=== PATIENT | female | born 1940 | race Caucasian/White ===

== ENCOUNTER 2016-10-12 15:51 | Inpatient (IN) | payer MEDICARE ==
[2016-10-12] MEDS ORDERED: SODIUM CHLORIDE 0.9% 500 ML IV STA (16:05)
[2016-10-12] MEDS ORDERED: MORPHINE SULFATE 2 MG/ML SYRINGE IVP STA (16:05)
[2016-10-12] MEDS ORDERED: ONDANSETRON 4 MG/2 ML VIAL IVP PRN (16:05)
[2016-10-12] MEDS ORDERED: SODIUM CHLORIDE 0.9% 1,000 ML IV STA ×2 (16:05)
[2016-10-12 16:33] LABS: Basophils % (A) 0 %; CH 30.4; CHCM 32.2; Eosinophils % (A) 1 %; HCT 42.7 % (34.0-46.0); HDW 2.45; HGB 13.4 gm/dL (11.4-16.0); Luc % (Auto) 1; Lymphocytes % (A) 12 %; MCH 29.9 pg (25.0-35.0); MCHC 31.4 g/dL (31.0-37.0); Mean Platelet Volume 7.8; Monocytes # (A) 0.5 k/uL (0-1.0); Monocytes % (A) 6 %; Neutrophils # (A) 6.4 k/uL (1.3-7.7); Neutrophils % (A) 80 %; RBC 4.49 m/uL (3.80-5.40); RDW 14.6 % (11.5-15.5); WBC 8.1 k/uL (3.8-10.6); WBC (Perox) 8.04
--- NOTE | 2016-10-12 16:33 | ED ---
General Adult HPI - General Chief complaint: Fall Stated complaint: FALL, HIP Fx Time Seen by Provider: 10/12/16 15:55 Source: patient, EMS, RN notes reviewed, old records reviewed Mode of arrival: EMS Limitations: altered mental status - History of Present Illness Initial comments: This is a 76-year-old female here for evaluation. Patient's history of cirrhosis status post fall patient patient has history of dementia unable to evacuate history. History obtained from EMS, patient staff. Patient had follow -up landing on right hip with right hip fracture positive proven on x-ray. Patient is brought in with x-ray films. Patient has no other complaints - Related Data Allergies Allergy/AdvReac Type Severity Reaction Status Date / Time latex Allergy Rash/Hives Verified 10/12/16 16:10 Penicillins Allergy Rash/Hives Verified 10/12/16 16:10 shellfish derived [Shellfish] Allergy Rash/Hives Verified 10/12/16 16:10 Review of Systems ROS Statement: Those systems with pertinent positive or pertinent negative responses have been documented in the HPI. ROS Other: All systems not noted in ROS Statement are negative. Past Medical History Past Medical History: Atrial Fibrillation, Dementia, GERD/Reflux, Hyperlipidemia , Hypertension, Sleep Apnea/CPAP/BIPAP, Thyroid Disorder Additional Past Medical History / Comment(s): vascular dementia, transient cerebral ischemia, peripheral arterial occlusive disease, iron deficiency anemia , balance impairment History of Any Multi-Drug Resistant Organisms: None Reported Past Surgical History: Appendectomy, Heart Catheterization With Stent, Joint Replacement, Pacemaker Additional Past Surgical History / Comment(s): pacemaker placed in 2011, right knee replacement in 2005, Past Psychological History: Depression Smoking Status: Former smoker Past Alcohol Use History: Rare Past Drug Use History: None Reported General Exam Limitations: altered mental status General appearance: alert, in no apparent distress Head exam: Present: atraumatic, normocephalic, normal inspection Eye exam: Present: normal appearance, PERRL, EOMI. Absent: scleral icterus, conjunctival injection, periorbital swelling ENT exam: Present: normal exam, mucous membranes moist Neck exam: Present: normal inspection. Absent: tenderness, meningismus, lymphadenopathy Respiratory exam: Present: normal lung sounds bilaterally. Absent: respiratory distress, wheezes, rales, rhonchi, stridor Cardiovascular Exam: Present: regular rate, normal rhythm, normal heart sounds. Absent: systolic murmur, diastolic murmur, rubs, gallop, clicks GI/Abdominal exam: Present: soft, normal bowel sounds. Absent: distended, tenderness, guarding, rebound, rigid Extremities exam: Present: normal inspection, full ROM, normal capillary refill , other (Right hip shortened rotated). Absent: tenderness, pedal edema, joint swelling, calf tenderness Back exam: Present: normal inspection Neurological exam: Present: alert, oriented X3, CN II-XII intact Psychiatric exam: Present: normal affect, normal mood Skin exam: Present: warm, dry, intact, normal color. Absent: rash Course Vital Signs 10/12/16 15:55 Temperature 97.7 F Pulse Rate 60 Respiratory 18 Rate Blood Pressure 158/92 O2 Sat by Pulse 98 Oximetry - Reevaluation(s) Reevaluation #1: 10/12/16 16:32 Patient's pain is controlled EKG Findings - EKG Comments: EKG Findings:: EKG shows sinus bradycardia rate 57, NM 18, QRS 70, QTC 445 Medical Decision Making - Medical Decision Making 36 female here for evaluation. Patient with minor fracture, positive right hip fracture. Patient be admitted for orthopedic treatment - Radiology Data Radiology results: report reviewed (X-rays reviewed showing positive right hip fracture), image reviewed Disposition Clinical Impression: Fall, Right hip pain Disposition: HOME SELF-CARE Condition: Good Referrals: Jamison Andrade MD [Primary Care Provider] - 1-2 days
[2016-10-12 16:37] LABS: ALT 35 U/L (9-52); AST 37 U/L (14-36); Alkaline Phosphatase 98 U/L (38-126); Anion Gap 10 mmol/L; Blood Urea Nitrogen 21 mg/dL (7-17); Carbon Dioxide 25 mmol/L (22-30); Chloride 105 mmol/L (98-107); Glucose 114 mg/dL (74-99); Magnesium 2.3 mg/dL (1.6-2.3); Non-African American GFR(MDRD) 56 (>60 ml/min/1.73 sqM); Phosphorous 3.5 mg/dL (2.5-4.5); Potassium 4.5 mmol/L (3.5-5.1); Sodium 140 mmol/L (137-145); Total Bilirubin 0.6 mg/dL (0.2-1.3); Total Protein 6.8 g/dL (6.3-8.2)
[2016-10-12 16:40] LABS: INR 1.1 (<1.1); Prothrombin Time 11.1 sec (9.0-12.0)
[2016-10-12 16:47] LABS: Creatine Kinase 75 U/L (30-135)
[2016-10-12 16:57] LABS: Partial Thromboplastin Time 34.1 sec (22.0-30.0)
[2016-10-12 17:00] LABS: Troponin I <0.012 ng/mL (0.000-0.034)
[2016-10-12 17:01] LABS: Creatine Kinase MB 2.6 ng/mL (0.0-2.4)
--- NOTE | 2016-10-12 17:31 | XR ---
EXAMINATION TYPE: XR chest 2V DATE OF EXAM: 10/12/2016 5:11 PM COMPARISON: 04/11/2012 HISTORY: Weakness TECHNIQUE: Frontal and lateral views of the chest are obtained. FINDINGS: There is no heart failure nor confluent pneumonic infiltrate. There is hiatal hernia. Ther e is a left axillary pacemaker with the lead tips in the right ventricle. There is no pleural effusio n. Bony thorax appears intact. IMPRESSION: Hiatal hernia. No active cardiopulmonary disease. Hiatal hernia appears new compared to last exam.
[2016-10-12 17:42] LABS: Appearance,Urine Clear (Clear); Bilirubin,Urine Negative (Negative); Glucose,Urine (UA) Trace (Negative); Ketones,Urine Negative (Negative); Leukocyte Esterase,Urine Negative (Negative); Nitrite,Urine Negative (Negative); Protein,Urine Negative (Negative); UA Billing (MACRO vs. MICRO) CHEM; Urobilinogen,Urine <2.0 mg/dL (<2.0)
[2016-10-12] MEDS: MORPHINE SULFATE 4 MG/ML SYRINGE IV SCH ×2 (20:09→23:12)
[2016-10-12 20:44] VITALS: BMI 27.8
[2016-10-12] MEDS: traZODone HCL 100 MG TAB PO SCH (23:59)
[2016-10-13] MEDS: MORPHINE SULFATE 4 MG/ML SYRINGE IV SCH ×6 (04:11→23:26)
[2016-10-13] MEDS: LEVOTHYROXINE 75 MCG TAB PO SCH (06:13)
[2016-10-13] MEDS ORDERED: PANTOPRAZOLE 40 MG/10 ML VIAL IVP SCH (09:00)
[2016-10-13] MEDS ORDERED: AMIODARONE 100 MG TAB PO SCH (09:00)
[2016-10-13] MEDS: VERAPAMIL SR 120 MG TABLET.ER PO SCH (09:58)
[2016-10-13] MEDS: ESCITALOPRAM 10 MG TAB PO SCH (09:58)
[2016-10-13] MEDS: PANTOPRAZOLE 40 MG TABLET PO SCH (09:59)
[2016-10-13] MEDS: ENOXAPARIN 40 MG/0.4 ML SYRINGE SQ SCH (11:54)
[2016-10-13] MEDS: ATORVASTATIN 20 MG TAB PO SCH (11:54)
[2016-10-13] MEDS: AMIODARONE 200 MG TAB PO SCH (11:55)
--- NOTE | 2016-10-13 12:32 | P.CONS ---
History of Present Illness - Reason for Consult Consult date: 10/13/16 medical management Requesting physician: Pérez Lares - Chief Complaint right hip fracture, A. fib, CAD, dementia, hypertension, obstructive sleep - History of Present Illness 76-year-old female who moved from [facility] recently used to live in town years ago. Patient apparently has been having significant symptom of advanced dementia had move to [facility] long-term over 4 weeks ago and has been doing well until 10/12/2016 when found on the floor after simple fall with no other major injury but had significant pain and discomfort in the hip area in the right side. Patient was transferred to the emergency department at [facility] x-ray of the hip showed intratrochanteric fracture of the right side. Patient had no other injury her lab and rest of workup came back negative. Patient was admitted to the hospital by Dr. Lares service for potential surgery either hemiarthroplasty hour ORIF of the right hip. Unfortunately patient is on anticoagulation with paradoxical for A. fib which will be held for at least the next 72 hours before taking a higher chance for bleed after surgery. Also patient will be tone medically and we'll consult cardiology for clearance before surgery. Review of Systems Constitutional: Reports anorexia, Reports fatigue, Reports lethargy, Reports weakness, Reports weight loss, Denies as per HPI, Denies chills, Denies chronic headaches, Denies chronic pain, Denies daytime sleepiness, Denies fever, Denies malaise, Denies night sweats, Denies poor appetite, Denies sweats, Denies weight gain Eyes: bilateral as per HPI Ears: bilateral: decreased hearing Ears, nose, mouth and throat: Reports ant. neck pain, Reports nasal discharge, Reports sinus pain, Reports sinus pressure, Denies as per HPI, Denies bleeding gums, Denies dental pain, Denies dysphagia, Denies epistaxis, Denies headache, Denies hoarseness, Denies mouth pain, Denies nasal congestion, Denies neck fullness/pressure, Denies neck lump, Denies nose pain, Denies odynophagia, Denies post-nasal drip, Denies swelling in mouth, Denies swelling in throat, Denies sore throat, Denies vertigo, Denies voice changes Cardiovascular: Reports chest pain, Reports claudication, Reports dyspnea on exertion, Reports edema, Reports lightheadedness, Reports orthopnea, Reports palpitations, Reports paroxysmal nocturnal dyspnea, Denies as per HPI, Denies decreased exercise tolerance, Denies high blood pressure, Denies irregular heart beat, Denies leg edema, Denies phlebitis, Denies rapid heart beat, Denies shortness of breath, Denies syncope Respiratory: Reports congestion, Reports dyspnea, Reports sleep apnea, Denies as per HPI, Denies cough, Denies cough with sputum, Denies excessive sputum, Denies hemoptysis, Denies home oxygen, Denies pain, Denies pain on inspiration, Denies pleurisy, Denies respiratory infections, Denies snoring, Denies wheezing Gastrointestinal: Reports abdominal pain, Reports dyspepsia, Reports indigestion , Reports nausea, Denies as per HPI, Denies belching, Denies bloating, Denies BRBPR, Denies change in bowel habits, Denies coffee ground emesis, Denies constipation, Denies diarrhea, Denies early satiety, Denies excessive gas, Denies heartburn, Denies hematemesis, Denies hematochezia, Denies jaundice, Denies lactose intolerance, Denies loss of appetite, Denies melena, Denies vomiting Genitourinary: Reports nocturia, Reports stress incontinence, Reports urge incontinence, Reports urinary frequency, Denies as per HPI, Denies abnormal vaginal bleeding, Denies decreased libido, Denies difficulty conceiving, Denies difficulty voiding, Denies dysmenorrhea, Denies dyspareunia, Denies dysuria, Denies flank pain, Denies genital sores, Denies hematuria, Denies hot flashes, Denies incomplete emptying, Denies kidney stones, Denies menorrhagia, Denies mixed incontinence, Denies pelvic pain, Denies post void dribbling, Denies , Denies prolapse symptoms, Denies urgency, Denies vaginal discharge, Denies vaginal dryness, Denies vaginal itching, Denies vaginal odor Menstruation: Denies as per HPI, Denies amenorrhea, Denies amenorrhea on BC, Denies currently menstrual, Denies cycle < 21 days, Denies cycle > 35 days, Denies cycle variable, Denies menses 1-7 days, Denies menses 8 or > days, Denies menses variable, Denies period heavy, Denies period light, Denies period normal, Denies period spotting, Denies post hysterectomy, Denies postmenopausal , Denies premenarcheal Musculoskeletal: Reports loss of height, Reports low back pain, Reports neck pain, Reports neck stiffness, Denies as per HPI, Denies arm numbness/tingling, Denies atrophy, Denies fractures, Denies frequent falls, Denies gait dysfunction , Denies hot joints, Denies leg numbness/tingling, Denies limitation of motion, Denies morning stiffness, Denies muscle cramps, Denies muscle weakness, Denies myalgias, Denies prior amputations, Denies redness of joints, Denies shooting arm pain, Denies shooting leg pain Musculoskeletal: right: hip pain, hip stiffness, hip swelling Integumentary: Reports dryness, Reports rash, Reports sores, Denies as per HPI, Denies acne, Denies boils, Denies brittle nails, Denies change in hair/nails, Denies color changes, Denies darkening of skin, Denies depigmentation, Denies foot/leg ulcers, Denies growths, Denies hirsutism, Denies lesions, Denies onychomycosis, Denies pruritus, Denies striae, Denies unusual bruising, Denies wounds Neurological: Reports aphasia, Reports paresthesias, Reports tingling, Reports weakness, Denies as per HPI, Denies ataxia, Denies balance difficulties, Denies burning pain, Denies change in mentation, Denies change in smell/taste, Denies change in speech, Denies confusion, Denies convulsions, Denies double vision, Denies gait dysfunction, Denies head injury, Denies headaches, Denies hearing difficulties, Denies lack of coordination, Denies loss of vision, Denies memory loss, Denies migraines, Denies motor disturbance, Denies numbness, Denies paralysis, Denies seizures, Denies sensory deficit, Denies spasticity, Denies syncope, Denies tic, Denies transient paralysis, Denies tremors, Denies vertigo , Denies visual changes Psychiatric: Reports confusion, Reports depression, Reports memory loss, Reports sleep disturbances, Denies as per HPI, Denies anhedonia, Denies anxiety , Denies anxiety attacks, Denies change in appetite, Denies change in libido, Denies change in sleep habits, Denies difficulty concentrating, Denies disorientation, Denies hallucinations, Denies hopelessness, Denies hypersomnia, Denies insomnia, Denies irritability, Denies mood swings, Denies paranoia, Denies sadness/tearfulness, Denies suicidal ideation Endocrine: Reports cold intolerance, Denies as per HPI, Denies deepening of the voice, Denies excessive sweating, Denies excessive thirst, Denies fatigue, Denies flushing, Denies heat intolerance, Denies high blood sugars, Denies increase in ring/shoe/hat size, Denies low blood sugars, Denies nocturia, Denies palpitations, Denies polydipsia, Denies polyphagia, Denies polyuria, Denies proptosis, Denies recent glucocorticoid use, Denies thyroid mass, Denies weight change Allergic/Immunologic: Reports allergic rhinitis, Denies as per HPI, Denies anaphylaxis, Denies angioedema, Denies gluten intolerance, Denies persistent infections, Denies seasonal allergies, Denies urticaria, Denies wheezing Past Medical History Past Medical History: Atrial Fibrillation, Dementia, GERD/Reflux, Hyperlipidemia , Hypertension, Sleep Apnea/CPAP/BIPAP, Thyroid Disorder Additional Past Medical History / Comment(s): vascular dementia, transient cerebral ischemia, peripheral arterial occlusive disease, iron deficiency anemia , balance impairment,urinary incontinence History of Any Multi-Drug Resistant Organisms: None Reported Past Surgical History: Appendectomy, Heart Catheterization With Stent, Joint Replacement, Pacemaker Additional Past Surgical History / Comment(s): pacemaker placed in 2011, right knee replacement in 2005, Past Anesthesia/Blood Transfusion Reactions: No Reported Reaction Date of Last Stent Placement:: none Type of Cardiac Device: Permanent Pacemaker Device Placement Date:: 2011 Past Psychological History: Depression Smoking Status: Former smoker Past Alcohol Use History: Rare Past Drug Use History: None Reported - Past Family History Father Family Medical History: Diabetes Mellitus, Deep Vein Thrombosis (DVT), Myocardial Infarction (MD) Mother Family Medical History: Hypertension Medications and Allergies Home Medications Medication Instructions Recorded Confirmed Type Acetaminophen Tab [Tylenol Tab] 1,000 mg PO Q4H PRN 10/12/16 10/12/16 History Amiodarone HCl [Pacerone] 100 mg PO DAILY 10/12/16 10/12/16 History Ascorbic Acid [Vitamin C] 500 mg PO DAILY@1700 10/12/16 10/12/16 History Aspirin 81 mg PO DAILY@17010/12/16 10/12/16 History Atorvastatin [Lipitor] 20 mg PO DAILY 10/12/16 10/12/16 History Bisacodyl [Dulcolax] 10 mg RECTAL DAILY PRN 10/12/16 10/12/16 History Calcium Carbonate/Vitamin D3 1 tab PO DAILY@17010/12/16 10/12/16 History [Os-Aditya 500+D3 Caplet] Dabigatran [Pradaxa] 150 mg PO BID@0800,169910/12/16 10/12/16 History Escitalopram Oxalate [Lexapro] 10 mg PO DAILY 10/12/16 10/12/16 History Ferrous Sulfate [Feosol] 325 mg PO DAILY@169910/12/16 10/12/16 History Furosemide [Lasix] 40 mg PO MOWEFR@169910/12/16 10/12/16 History Levothyroxine Sodium [Synthroid] 75 mcg PO DAILY 10/12/16 10/12/16 History Magnesium Hydroxide [Milk of 2,400 mg PO DAILY PRN 10/12/16 10/12/16 History Magnesia] Multivitamins, Thera [Multivitamin 1 tab PO DAILY@169910/12/16 10/12/16 History (formulary)] Na Phos,M-B/Na Phos,Di-Ba [Fleet 133 ml RECTAL DAILY PRN 10/12/16 10/12/16 History Adult] OLANZapine [ZyPREXA] 2.5 mg PO HS 10/12/16 10/12/16 History Omeprazole 20 mg PO DAILY 10/12/16 10/12/16 History Potassium Chloride ER [K-Dur 20] 20 meq PO MOWEFR@169910/12/16 10/12/16 History Verapamil HCl [Verapamil ER] 120 mg PO DAILY 10/12/16 10/12/16 History traMADol HCL [Ultram] 50 mg PO Q6HR PRN 10/12/16 10/12/16 History traZODone HCL 100 mg PO HS 10/12/16 10/12/16 History Allergies Allergy/AdvReac Type Severity Reaction Status Date / Time latex Allergy Rash/Hives Verified 10/12/16 16:33 Penicillins Allergy Rash/Hives Verified 10/12/16 16:33 shellfish derived [Shellfish] Allergy Rash/Hives Verified 10/12/16 16:33 Physical Exam Vitals: Vital Signs Temp Pulse Pulse Pulse Resp BP BP 10/13/16 09:56 125/77 10/13/16 07:00 97.0 F L 72 16 95/55 10/13/16 02:30 98.8 F 74 16 115/63 10/12/16 20:07 98.2 F 72 16 135/60 10/12/16 20:00 16 10/12/16 18:34 97.3 F L 78 18 150/66 10/12/16 17:43 65 16 150/66 Pulse Ox 10/13/16 09:56 94 L 10/13/16 07:00 88 L 10/13/16 02:30 92 L 10/12/16 20:07 95 10/12/16 20:00 10/12/16 18:34 97 10/12/16 17:43 95 Intake and Output 10/12/16 10/13/16 10/13/16 22:59 06:59 14:59 Intake Total 400 800 Output Total 525 Balance 400 275 Intake: IV 400 800 Sodium Chloride 0.9% 1, 400 800 000 ml @ 100 mls/hr IV . Q10H STA Rx#:[id number] Output: Urine 525 Uretheral (Beckman) 525 Other: Voiding Method Indwelling Catheter Weight 83.189 kg - Constitutional General appearance: no average body habitus, cooperative, no disheveled, no mild distress, no morbidly obese, no acute distress, no obese, no severe distress, no thin - EENT Eyes: no abnormal pupil, no anicteric sclerae, no disc margins sharp, no edentulous, no EOMI, no PERRLA, no fundus normal, no photophobia, no dentition normal, no poor dentition, no ptosis, no scleral icterus, normal appearance ENT: no hard of hearing, no hearing grossly normal, no NA/AT, normal oropharynx , no other, no pharyngeal erythema, no thrush, no tonsillar exudates, no tonsillar swelling Ears: bilateral: normal - Neck Neck: no lymphadenopathy, normal ROM, no other, no rigidity, no stridor, no thyromegaly Carotids: bilateral: upstroke normal Thyroid: bilateral: normal size - Respiratory Respiratory: bilateral: CTA, diminished - Cardiovascular Rhythm: irregularly irregular Heart sounds: normal: S1, S2 Abnormal Heart Sounds: systolic murmur, S3 Gallop - Gastrointestinal General gastrointestinal: no absent bowel sounds, decreased bowel sounds, no distended, no hepatomegaly, no hyperactive bowel sounds, normal bowel sounds, no organomegaly, no rigid, no scaphoid, soft, no splenomegaly, no tenderness, no umbilical hernia, no ventral hernia - Integumentary right hip area had mild tenderness and discomfort in the right groin also had that the leg mildly externally rotated. Integumentary: calor, no cellulitis, no cyanotic, no decreased turgor, no flushed, no jaundiced, normal, normal turgor, pale, no rash, no ulcer - Neurologic Neurologic: CNII-XII intact - Musculoskeletal Musculoskeletal: no gait normal, generalized weakness, no strength equal bilaterally, no right sided weakness, no left sided weakness - Psychiatric Psychiatric: no A&O x's 3, appropriate affect, no intact judgment & insight Results CBC & Chem 7: 10/12/16 14:10 10/12/16 14:10 Labs: Abnormal Lab Results - Last 24 Hours (Table) 10/12/16 Range/Units 17:30 Urine Glucose (UA) Trace H (Negative) Microbiology - Last 24 Hours (Table) 10/12/16 17:30 Urine Culture - Preliminary Urine,Catheterized Assessment and Plan Plan: 1 right hip fracture: Patient will be going for surgery for either hemiarthroplasty hour ORIF depend of with the orthopedic find the best set up for it and for the circumstances. Patient will be clear for surgery. Make sure patient is back on her A. fib medication regime along with her congestive heart failure medication except anticoagulation. Also consult cardiology for cardiology clearance. from medical standpoint I don't see any absolute contraindication for surgery patient will be watch hemodynamically during after surgery. 2 CAD: Post PCI and stent placement has been doing well her senior bioinformatics scientist apparently wasn't [place] has not seen a senior bioinformatics scientist down so far. 3 A. fib with RVR: Pulse rates under control currently patient is doing well on verapamil andamiodarone 100 mg daily and 4 anticoagulation has been on pradaxa, pradaxa was held for now until the surgery. 4 post pacemaker: Has been watch by cardiology regular basis. 5 advance dementia: Patient has been on Lexapro and Zyprexa along with trazodone at nighttime. 6 hyperlipidemia: Has been on Lipitor 20 mg a day. 7 congestive heart failure: Mostly systolic dysfunction chronic has been on Lasix fluid restriction and verapamil. 8 hypothyroidism: Continue levothyroxine 75 g daily. 9 chronic anemia: Iron deficient patient has been doing well on iron supplement. 10 GI prophylaxis: Patient will be on omeprazole 20 mg daily. 11 DVT prophylaxis: Patient was on pradaxa as soon as she is done with surgery back on medication otherwise will be on heparin subcutaneous. CODE STATUS: DO NOT RESUSCITATE. Dr. Lares thank you very much for the consult if I can be any further help to please let me know
--- NOTE | 2016-10-13 15:11 | XR ---
EXAMINATION TYPE: XR Hip Complete RT DATE OF EXAM: 10/13/2016 9:00 AM COMPARISON: NONE HISTORY: Hip fracture TECHNIQUE: 2 view right hip FINDINGS: There is a fracture through the neck of the right femur. Femoral head articulates with the acetabulum. IMPRESSION: 1. Right femoral neck fracture.
--- NOTE | 2016-10-13 16:25 | P.HPOR ---
History of Present Illness H&P Date: 10/13/16 Chief Complaint: Right femoral neck fracture This is 76-year-old female who presented to [facility] yesterday from her inpatient rehab facility. Patient is [facility] at [facility] due to dementia. Patient was found on her floor in her room around 11 AM on 10/12/2016. She was unable to weight-bear complained of pain in the right hip. She was brought to [facility] on, and imaging test demonstrated a right femoral neck fracture. I was not contacted by the emergency room staff, I was contacted this morning by the surgical floor nurses with regards to this patient. She is admitted under our orthopedic care, with internal medicine consult. 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 She's been am [facility] facility for the last 3 weeks. She is a previous hip surgery, and also a left total knee arthroplasty that were done on the left side of the stay. Patient is very poor historian, she cannot provide any history with regards to her medical problems or the recent fall. Patient sister is present with her at bedside today who provided knee with all the information. The patient sister mentions that her activity level Status has declined since arriving contact [place], and she states it has been on the decline over the last year so. She does utilize a walker when she ambulates. Patient does admit to discomfort in the right hip with movement. She denies any acute pain involving the right knee or right foot or ankle. She denies any left lower extremity pain, she denies any upper extremity pain, she denies any discomfort of the cervical and lumbar spine. Patient denies any headaches, lightheadedness, chest pain, shortness of breath, fever or chills. Review of Systems Constitutional: Reports as per HPI Past Medical History Past Medical History: Atrial Fibrillation, Dementia, GERD/Reflux, Hyperlipidemia , Hypertension, Sleep Apnea/CPAP/BIPAP, Thyroid Disorder Additional Past Medical History / Comment(s): vascular dementia, transient cerebral ischemia, peripheral arterial occlusive disease, iron deficiency anemia , balance impairment,urinary incontinence History of Any Multi-Drug Resistant Organisms: None Reported Past Surgical History: Appendectomy, Heart Catheterization With Stent, Joint Replacement, Pacemaker Additional Past Surgical History / Comment(s): pacemaker placed in 2011, right knee replacement in 2005, Past Anesthesia/Blood Transfusion Reactions: No Reported Reaction Date of Last Stent Placement:: none Type of Cardiac Device: Permanent Pacemaker Device Placement Date:: 2011 Past Psychological History: Depression Smoking Status: Former smoker Past Alcohol Use History: Rare Past Drug Use History: None Reported - Past Family History Father Family Medical History: Diabetes Mellitus, Deep Vein Thrombosis (DVT), Myocardial Infarction (ID) Mother Family Medical History: Hypertension Medications and Allergies Home Medications Medication Instructions Recorded Confirmed Type Acetaminophen Tab [Tylenol Tab] 1,000 mg PO Q4H PRN 10/12/16 10/12/16 History Amiodarone HCl [Pacerone] 100 mg PO DAILY 10/12/16 10/12/16 History Ascorbic Acid [Vitamin C] 500 mg PO DAILY@169910/12/16 10/12/16 History Aspirin 81 mg PO DAILY@169910/12/16 10/12/16 History Atorvastatin [Lipitor] 20 mg PO DAILY 10/12/16 10/12/16 History Bisacodyl [Dulcolax] 10 mg RECTAL DAILY PRN 10/12/16 10/12/16 History Calcium Carbonate/Vitamin D3 1 tab PO DAILY@169910/12/16 10/12/16 History [Os-Aditya 500+D3 Caplet] Dabigatran [Pradaxa] 150 mg PO BID@0800,169910/12/16 10/12/16 History Escitalopram Oxalate [Lexapro] 10 mg PO DAILY 10/12/16 10/12/16 History Ferrous Sulfate [Feosol] 325 mg PO DAILY@169910/12/16 10/12/16 History Furosemide [Lasix] 40 mg PO MOWEFR@169910/12/16 10/12/16 History Levothyroxine Sodium [Synthroid] 75 mcg PO DAILY 10/12/16 10/12/16 History Magnesium Hydroxide [Milk of 2,400 mg PO DAILY PRN 10/12/16 10/12/16 History Magnesia] Multivitamins, Thera [Multivitamin 1 tab PO DAILY@169910/12/16 10/12/16 History (formulary)] Na Phos,M-B/Na Phos,Di-Ba [Fleet 133 ml RECTAL DAILY PRN 10/12/16 10/12/16 History Adult] OLANZapine [ZyPREXA] 2.5 mg PO HS 10/12/16 10/12/16 History Omeprazole 20 mg PO DAILY 10/12/16 10/12/16 History Potassium Chloride ER [K-Dur 20] 20 meq PO MOWEFR@1700 10/12/16 10/12/16 History Verapamil HCl [Verapamil ER] 120 mg PO DAILY 10/12/16 10/12/16 History traMADol HCL [Ultram] 50 mg PO Q6HR PRN 10/12/16 10/12/16 History traZODone HCL 100 mg PO HS 10/12/16 10/12/16 History Allergies Allergy/AdvReac Type Severity Reaction Status Date / Time latex Allergy Rash/Hives Verified 10/12/16 16:33 Penicillins Allergy Rash/Hives Verified 10/12/16 16:33 shellfish derived [Shellfish] Allergy Rash/Hives Verified 10/12/16 16:33 Physical Examination Right lower extremity: Obvious shortening and external rotation of the hip was noted. There is no obvious open lesions or sores present Patient is unable to straight leg raise, logroll maneuver reproduces pain Her calf is soft, no tenderness with palpation. Her sensation to light touch throughout the lower extremities intact, her dorsal pedis pulses 2+. Plantar flexion, dorsiflexion, EHL, FHL are intact. Results - Labs Labs: Abnormal Lab Results - Last 24 Hours (Table) 10/12/16 Range/Units 17:30 Urine Glucose (UA) Trace H (Negative) Microbiology - Last 24 Hours (Table) 10/12/16 17:30 Urine Culture - Preliminary Urine,Catheterized Result Diagrams: 10/12/16 14:10 10/12/16 14:10 - Diagnostic results Hip x-ray: report reviewed, image reviewed Assessment and Plan Plan: Imaging: X-rays the right hip and pelvis were taken. Images demonstrated a right femoral neck fracture with displacement. No other acute fractures or dislocations present Assessment: 1. Right femoral neck fracture 2. Status post fall 3. Other medical comorbidities Plan: 1. I was able to discuss this case, including the physical exam findings and imaging studies with Dr. Lares. I would like to proceed with surgical fixation, we would like to do direct anterior hip replacement for this problem. Patient is anticoagulated with Pradaxa, so surgery will be delayed until 10/15. 2. I did discuss the risk and benefits of the procedure with the patient's sister, I also did discuss the case and surgery with the patient's daughter who is her guardian. I will be contacting her throughout the hospital stay for updates. 3. Obtain consents 4. Regular diet at this time, she'll be made nothing by mouth before surgery 5. Heparin subcu for DVT prophylaxis, also be held before surgery. Hold Pradaxa 6. Medical clearances 7. Cardiac clearances 8. Further recommendations to follow after surgery Time with Patient: Less than 30
[2016-10-13] MEDS: POTASSIUM CHLORIDE ER 20 MEQ TAB.ER PO SCH (20:19)
[2016-10-13] MEDS: FUROSEMIDE 40 MG TAB PO SCH (20:19)
[2016-10-13] MEDS: FERROUS SULFATE 325 MG TAB PO SCH (20:19)
[2016-10-13] MEDS: traZODone HCL 100 MG TAB PO SCH (20:20)
[2016-10-13] MEDS: OLANZapine 2.5 MG TAB PO SCH (20:20)
[2016-10-14] MEDS: MORPHINE SULFATE 4 MG/ML SYRINGE IV SCH ×5 (03:04→22:23)
[2016-10-14] MEDS: LEVOTHYROXINE 75 MCG TAB PO SCH (05:23)
[2016-10-14 08:23] LABS: ALT 31 U/L (9-52); AST 22 U/L (14-36); Alkaline Phosphatase 72 U/L (38-126); Anion Gap 4 mmol/L; Blood Urea Nitrogen 12 mg/dL (7-17); Carbon Dioxide 28 mmol/L (22-30); Chloride 105 mmol/L (98-107); Glucose 89 mg/dL (74-99); Non-African American GFR(MDRD) >60 (>60 ml/min/1.73 sqM); Potassium 4.2 mmol/L (3.5-5.1); Sodium 137 mmol/L (137-145); Total Bilirubin 0.6 mg/dL (0.2-1.3); Total Protein 5.3 g/dL (6.3-8.2)
[2016-10-14] MEDS: VERAPAMIL SR 120 MG TABLET.ER PO SCH (08:53)
[2016-10-14] MEDS: AMIODARONE 200 MG TAB PO SCH (08:53)
[2016-10-14] MEDS: PANTOPRAZOLE 40 MG TABLET PO SCH (08:53)
[2016-10-14] MEDS: ATORVASTATIN 20 MG TAB PO SCH (08:54)
[2016-10-14] MEDS: ESCITALOPRAM 10 MG TAB PO SCH (08:54)
[2016-10-14] MEDS: ENOXAPARIN 40 MG/0.4 ML SYRINGE SQ SCH (08:54)
--- NOTE | 2016-10-14 11:35 | P.PN ---
Subjective Principal diagnosis: Right femoral neck fracture Patient is seen today resting in hospital in bed, she is sleeping upon arrival. Her mental status is unchanged since yesterday. She states the pain in the right hip is stable when she does not move Objective - Vital Signs Vital signs: Vital Signs Temp 98.5 F 10/14/16 07:32 Pulse 54 L 10/14/16 07:32 Resp 15 10/14/16 07:32 BP 100/64 10/14/16 07:32 Pulse Ox 93 L 10/14/16 07:32 Intake & Output 10/13/16 10/14/16 10/14/16 18:59 06:59 18:59 Intake Total 500 Output Total 1300 2500 Balance -1300 -1999 Intake: IV 350 Sodium Chloride 0.9% 1, 350 000 ml @ 100 mls/hr IV . Q10H STA Rx#:[id number] Oral 150 Output: Urine 1300 2500 Other: Voiding Method Indwelling Catheter Indwelling Catheter Indwelling Catheter - Exam Right lower extremity: Obvious shortening and external rotation of the hip is noted. There is no obvious open lesions or sores, there is ecchymosis or soft tissue swelling. Calf is soft, no tenderness with palpation. Plantar flexion, dorsiflexion, EHL , FHL are intact. Sensation to light touch throughout the extremities intact, dorsal pedis pulses 2+ - Labs CBC & Chem 7: 10/12/16 14:10 10/14/16 06:58 Labs: Abnormal Lab Results - Last 24 Hours (Table) 10/14/16 Range/Units 06:58 Calcium 8.0 L (8.4-10.2) mg/dL Total Protein 5.3 L (6.3-8.2) g/dL Albumin 2.7 L (3.5-5.0) g/dL Microbiology - Last 24 Hours (Table) 10/12/16 17:30 Urine Culture - Final Urine,Catheterized Assessment and Plan Plan: Assessment: 1. Right femoral neck fracture Plan: 1. Plan is for surgery tomorrow morning, she'll be made nothing by mouth after midnight 2. Continue nonweightbearing 3. Pain control 4. GI and DVT prophylaxis, continue heparin at this time, we'll hold after midnight 5. Further recommendations after surgery Time with Patient: Less than 30
--- NOTE | 2016-10-14 13:54 | P.PN ---
Subjective 76-year-old female who moved from [facility] recently used to live in town years ago. Patient apparently has been having significant symptom of advanced dementia had move to [facility] long-term over 4 weeks ago and has been doing well until 10/12/2016 when found on the floor after simple fall with no other major injury but had significant pain and discomfort in the hip area in the right side. Patient was transferred to the emergency department at [facility] x-ray of the hip showed intratrochanteric fracture of the right side. Patient had no other injury her lab and rest of workup came back negative. Patient was admitted to the hospital by Dr. Lares service for potential surgery either hemiarthroplasty hour ORIF of the right hip. Unfortunately patient is on anticoagulation with paradoxical for A. fib which will be held for at least the next 72 hours before taking a higher chance for bleed after surgery. Also patient will be tone medically and we'll consult cardiology for clearance before surgery. 10/14: Patient is laying down in bed in no apparent distress, she is scheduled to go for surgical intervention in the next 24 hours, she denies any chest pain , shortness breath, she will was seen by cardiology, she denies any abdominal pain, her pain is feeling much controlled. Objective - Vital Signs Vital signs: Vital Signs Temp 98.5 F 10/14/16 07:32 Pulse 54 L 10/14/16 07:32 Resp 15 10/14/16 07:32 BP 100/64 10/14/16 07:32 Pulse Ox 93 L 10/14/16 07:32 Intake & Output 10/13/16 10/14/16 10/14/16 18:59 06:59 18:59 Intake Total 500 Output Total 1300 2500 Balance -1299 -1999 Intake: IV 350 Sodium Chloride 0.9% 1, 350 000 ml @ 100 mls/hr IV . Q10H STA Rx#:[id number] Oral 150 Output: Urine 1300 2500 Other: Voiding Method Indwelling Catheter Indwelling Catheter - Exam - Constitutional General appearance: no average body habitus, cooperative, no disheveled, no mild distress, no morbidly obese, no acute distress, no obese, no severe distress, no thin - EENT Eyes: no abnormal pupil, no anicteric sclerae, no disc margins sharp, no edentulous, no EOMI, no PERRLA, no fundus normal, no photophobia, no dentition normal, no poor dentition, no ptosis, no scleral icterus, normal appearance ENT: no hard of hearing, no hearing grossly normal, no NA/AT, normal oropharynx , no other, no pharyngeal erythema, no thrush, no tonsillar exudates, no tonsillar swelling Ears: bilateral: normal - Neck Neck: no lymphadenopathy, normal ROM, no other, no rigidity, no stridor, no thyromegaly Carotids: bilateral: upstroke normal Thyroid: bilateral: normal size - Respiratory Respiratory: bilateral: CTA, diminished - Cardiovascular Rhythm: irregularly irregular Heart sounds: normal: S1, S2 Abnormal Heart Sounds: systolic murmur, S3 Gallop - Gastrointestinal General gastrointestinal: no absent bowel sounds, decreased bowel sounds, no distended, no hepatomegaly, no hyperactive bowel sounds, normal bowel sounds, no organomegaly, no rigid, no scaphoid, soft, no splenomegaly, no tenderness, no umbilical hernia, no ventral hernia - Integumentary right hip area had mild tenderness and discomfort in the right groin also had that the leg mildly externally rotated. Integumentary: calor, no cellulitis, no cyanotic, no decreased turgor, no flushed, no jaundiced, normal, normal turgor, pale, no rash, no ulcer - Neurologic Neurologic: CNII-XII intact - Musculoskeletal Musculoskeletal: no gait normal, generalized weakness, no strength equal bilaterally, no right sided weakness, no left sided weakness - Psychiatric Psychiatric: no A&O x's 3, appropriate affect, no intact judgment & insight - Labs CBC & Chem 7: 10/12/16 14:10 10/14/16 06:58 Labs: Abnormal Lab Results - Last 24 Hours (Table) 10/14/16 Range/Units 06:58 Calcium 8.0 L (8.4-10.2) mg/dL Total Protein 5.3 L (6.3-8.2) g/dL Albumin 2.7 L (3.5-5.0) g/dL Microbiology - Last 24 Hours (Table) 10/12/16 17:30 Urine Culture - Final Urine,Catheterized Assessment and Plan Plan: Assessment and Plan Plan: 1 right hip fracture: Patient will be going for surgery for anterior direct hip replacement Patient will be clear for surgery. Make sure patient is back on her A. fib medication regime along with her congestive heart failure medication except anticoagulation. Also consult cardiology for cardiology clearance. from medical standpoint I don't see any absolute contraindication for surgery patient will be watch hemodynamically during after surgery. 2 CAD: Post PCI and stent placement has been doing well her engineering illustrator apparently wasn't [place] has not seen a engineering illustrator down so far. 3 A. fib with RVR: Pulse rates under control currently patient is doing well on verapamil andamiodarone 100 mg daily and 4 anticoagulation has been on pradaxa, pradaxa was held for now until the surgery. 4 post pacemaker: Has been watch by cardiology regular basis. 5 advance dementia: Patient has been on Lexapro and Zyprexa along with trazodone at nighttime. 6 hyperlipidemia: Has been on Lipitor 20 mg a day. 7 congestive heart failure: Mostly systolic dysfunction chronic has been on Lasix fluid restriction and verapamil. 8 hypothyroidism: Continue levothyroxine 75 g daily. 9 chronic anemia: Iron deficient patient has been doing well on iron supplement. 10 GI prophylaxis: Patient will be on omeprazole 20 mg daily. 11 DVT prophylaxis: Patient was on pradaxa as soon as she is done with surgery back on medication otherwise will be on heparin subcutaneous. CODE STATUS: DO NOT RESUSCITATE.
[2016-10-14] MEDS: FERROUS SULFATE 325 MG TAB PO SCH (16:38)
[2016-10-14] MEDS: traZODone HCL 100 MG TAB PO SCH (22:23)
[2016-10-14] MEDS: OLANZapine 2.5 MG TAB PO SCH (22:23)
[2016-10-15] MEDS: MORPHINE SULFATE 4 MG/ML SYRINGE IV SCH ×7 (00:48→22:27)
[2016-10-15] MEDS: LEVOTHYROXINE 75 MCG TAB PO SCH (06:13)
[2016-10-15 07:51] LABS: ALT 34 U/L (9-52); AST 28 U/L (14-36); Alkaline Phosphatase 79 U/L (38-126); Anion Gap 9 mmol/L; Blood Urea Nitrogen 13 mg/dL (7-17); Calcium 8.8 mg/dL (8.4-10.2); Carbon Dioxide 24 mmol/L (22-30); Chloride 106 mmol/L (98-107); Glucose 101 mg/dL (74-99); Non-African American GFR(MDRD) >60 (>60 ml/min/1.73 sqM); Potassium 4.2 mmol/L (3.5-5.1); Sodium 139 mmol/L (137-145); Total Bilirubin 0.8 mg/dL (0.2-1.3); Total Protein 5.8 g/dL (6.3-8.2)
[2016-10-15 08:03] LABS: Basophils % (A) 0 %; CH 30.5; CHCM 33.3; Eosinophils % (A) 1 %; HCT 36.3 % (34.0-46.0); HDW 2.74; HGB 12.2 gm/dL (11.4-16.0); Luc # (Auto) 0.11; Luc % (Auto) 2; Lymphocytes # (A) 0.8 k/uL (1.0-4.8); Lymphocytes % (A) 14 %; MCHC 33.7 g/dL (31.0-37.0); MCV 91.9 fL (80.0-100.0); Mean Platelet Volume 9.6; Monocytes # (A) 0.5 k/uL (0-1.0); Monocytes % (A) 8 %; Neutrophils # (A) 4.6 k/uL (1.3-7.7); Neutrophils % (A) 76 %; RBC 3.95 m/uL (3.80-5.40); RDW 13.9 % (11.5-15.5); WBC (Perox) 5.91
[2016-10-15] MEDS ORDERED: ePHEDrine 50 MG/ML 1 ML AMP ONE (08:11)
[2016-10-15] MEDS ORDERED: IV FLUID CONTINUATION 600 ML IV ONE (08:11)
[2016-10-15] MEDS ORDERED: LIDOCAINE 1% INJ 10MG/ML (20 ML MDV) ONE (08:11)
[2016-10-15] MEDS ORDERED: NEOSTIGMINE 1 MG/ML 10 ML VIAL ONE (08:11)
[2016-10-15] MEDS ORDERED: SUCCINYLCHOLINE CHLORIDE VIAL 200 MG/10 ML VIAL IV ONE (08:11)
[2016-10-15] MEDS ORDERED: ceFAZolin 1,000 MG VIAL ONE (08:11)
[2016-10-15] MEDS ORDERED: MIDAZOLAM 2 MG/2 ML VIAL ONE (08:11)
[2016-10-15] MEDS ORDERED: ONDANSETRON 4 MG/2 ML VIAL ONE (08:11)
[2016-10-15] MEDS ORDERED: GLYCOPYRROLATE 0.2 MG/ML 2 ML VIAL ONE (08:11)
[2016-10-15] MEDS ORDERED: PROPOFOL 10 MG/ML 20 ML VIAL IV ONE (08:11)
[2016-10-15] MEDS ORDERED: TRANEXAMIC ACID 1,000 MG/10 ML VIAL ONE (08:11)
[2016-10-15] MEDS ORDERED: PHENYLEPHRINE-0.9% NACL SYG 1 MG/10 ML SYRINGE ONE (08:11)
[2016-10-15] MEDS ORDERED: SODIUM CHLORIDE 0.9% 50 ML with ceFAZolin 2,000 MG IV ONE ×2 (08:11)
[2016-10-15] MEDS ORDERED: SODIUM CHLORIDE 0.9% 100 ML BAG ONE (08:11)
[2016-10-15] MEDS ORDERED: fentaNYL (PF) 50 MCG/ML 2 ML AMP ONE (08:11)
[2016-10-15] MEDS ORDERED: ROCURONIUM BROMIDE 10 MG/ML 10 ML VIAL IV ONE (08:11)
[2016-10-15] MEDS ORDERED: CLINDAMYCIN 1,800 MG in SODIUM CHLORIDE 0.9% IRRIGATIO 3,000 ML IRRIGATION ONE (08:36)
[2016-10-15] MEDS ORDERED: TRANEXAMIC ACID 1,000 MG in SODIUM CHLORIDE 0.9% 100 ML IVPB ONE (08:45)
[2016-10-15] MEDS ORDERED: LACTATED RINGERS 1,000 ML IV ONE ×2 (09:29)
--- NOTE | 2016-10-15 10:30 | XR ---
Fluoroscopy INDICATION: Pain FINDINGS: Fluoroscopy time: 10 seconds. Images obtained: 1. IMPRESSIONS: 1. Documentation of fluoroscopy.
--- NOTE | 2016-10-15 10:36 | P.OP ---
Date of Procedure: 10/15/16 Preoperative Diagnosis: Right hip displaced femoral neck fracture Postoperative Diagnosis: 1. Right hip displaced femoral neck fracture 2. Right hip osteoarthritis Procedure(s) Performed: Direct anterior right total hip arthroplasty Implants: 1. Depuy Corail size 13 ROSAS coated no collar cementless femoral stem 2. Depuy pinnacle acetabular shell 52 mm 3. Depuy pinnacle polyethylene acetabular liner neutral 36 mm ID 52 mm OD 4. Depuy metal femoral head 36 mm +8.5 Anesthesia: GETA Surgeon: Pérez Lares Senior Principal Process Engineer #1: Jonathan Orta Estimated Blood Loss (ml): 300 Pathology: other (Femoral head) Condition: stable Disposition: PACU Indications for Procedure: 76-year-old patient seen with a displaced right hip femoral neck fracture. There was concomitant osteoarthritis. I recommended direct anterior right total hip arthroplasty. The procedure was reviewed with family. They were agreeable and consent was obtained. Operative Findings: See description of procedure Description of Procedure: The patient was taken to the operative suite. Patient underwent a general anesthetic by the department of anesthesia. Patient was then transferred to the [facility]. Patient was given preoperative IV antibiotics and TXA. Both lower extremities were placed in standard leg spars. The hip was then prepped and draped in the normal sterile orthopedic fashion. A standard anterior incision was made beginning 3 cm lateral and 1 cm distal to the ASIS extending 10 cm. Dissection was then carried down through the subcutaneous soft tissues down to the fascia overlying the tensor fascia rubén. An incision was now made through the fascia. Careful dissection was taken down exposing the tensor fascia rubén muscle. A Cobra retractor was now placed along the medial femoral neck and a second one along the lateral femoral neck. The venous circumflex vessels were now identified, cauterized and clipped. We identified the anterior hip capsule. An incision was made through the hip capsule along the lateral border. A capsulotomy was performed. We noted a displaced femoral neck fracture. I used a sagittal saw to clean the margins. The femoral head was then removed. There was some osteoarthritis noted of both the femoral head and acetabulum. Residual labrum was now debrided out. Serial reaming was performed of the acetabulum. Once we reached the appropriate size and a trial was position and fit nicely. The appropriate size was now chosen opened and made available. The wound was irrigated with pulse lavage mechanical irrigation. It was introduced into the acetabulum without difficulty. The C- arm/fluoroscopy was now brought into the operative field. We made sure we had a true AP pelvic view. We now under direct C-arm/fluoroscopy introduced into the acetabular component with appropriate version and inclination. It was well seated and stable. The C-arm was pulled back. An appropriate liner was introduced and clicked into position. It was felt to be stable. At this point retractors were removed. The extremity was now placed into 125 external rotation with no traction. The leg was now dropped to the ground and adducted. Appropriate retractors were now positioned along the proximal femur. We also placed our femoral look into position. Additional capsular releasing was performed to gain access to the proximal femur. We now used a box osteotome. A canal finder was now utilized. Serial broaching was now performed until we reached the appropriate size with good overall rotational stability. Appropriate calcar planing was performed. A trial head/neck was placed into position. The hip was now reduced. The C-arm/fluoroscopy was brought back into the operative field. A spot film was obtained of the nonoperative hip. A spot film was obtained of the trial components. Overlays were performed, we noted good overall alignment and positioning for determining leg length. The C- arm/fluoroscopy was pulled back. Retractors were repositioned and the hip was dislocated. The leg was again taken down to the ground and adducted. Appropriate retractors were repositioned as well as the femoral hook. All trial components were removed. The femoral implant was opened along with the femoral head. The wound was irrigated with pulse lavage mechanical irrigation. The femoral implant was introduced with good purchase and fixation noted. The femoral head was introduced with good positioning and fixation noted. Retractors were now removed. The hip was now reduced. There appeared be good positioning of the hip. Bipolar cautery had been utilized intermittently through the procedure for hemostasis. The wound was irrigated copiously with pulse lavage mechanical irrigation. The fascia was repaired with Vicryl suture. The subcutaneous soft tissues were repaired in layers with Vicryl suture. The skin was approximated with pernio/Dermabond. Sterile dressings were applied. Patient was then awakened, transferred to a bed and taken to recovery in stable condition. Ryan ALBRECHT assisted with the procedure.
[2016-10-15] MEDS ORDERED: HYDROmorphone 1 MG/ML 1 ML SYRINGE IVP PRN ×2 (10:37)
[2016-10-15] MEDS ORDERED: HYDROcodone/APAP 5-325MG 1 EACH TAB PO PRN (10:37)
[2016-10-15] MEDS ORDERED: NALOXONE 0.4 MG/ML 1 ML VIAL IV PRN (10:37)
[2016-10-15] MEDS ORDERED: traMADol 50 MG TAB PO PRN (10:37)
[2016-10-15] MEDS ORDERED: ONDANSETRON 4 MG/2 ML VIAL IVP PRN (10:37)
[2016-10-15] MEDS: HYDROmorphone 1 MG/ML 1 ML SYRINGE IVP ONE ×2 (10:55→11:02)
[2016-10-15] MEDS: HYDROmorphone 1 MG/ML 1 ML SYRINGE IVP PRN ×2 (11:56→21:17)
--- NOTE | 2016-10-15 13:45 | P.PN ---
Subjective 76-year-old female who moved from [facility] recently used to live in town years ago. Patient apparently has been having significant symptom of advanced dementia had move to [facility] long-term over 4 weeks ago and has been doing well until 10/12/2016 when found on the floor after simple fall with no other major injury but had significant pain and discomfort in the hip area in the right side. Patient was transferred to the emergency department at [facility] x-ray of the hip showed intratrochanteric fracture of the right side. Patient had no other injury her lab and rest of workup came back negative. Patient was admitted to the hospital by Dr. Lares service for potential surgery either hemiarthroplasty hour ORIF of the right hip. Unfortunately patient is on anticoagulation with paradoxical for A. fib which will be held for at least the next 72 hours before taking a higher chance for bleed after surgery. Also patient will be tone medically and we'll consult cardiology for clearance before surgery. 10/14: Patient is laying down in bed in no apparent distress, she is scheduled to go for surgical intervention in the next 24 hours, she denies any chest pain , shortness breath, she will was seen by cardiology, she denies any abdominal pain, her pain is feeling much controlled. 10/15: Patient is going for surgery today. Objective - Vital Signs Vital signs: Vital Signs Temp 98.6 F 10/15/16 07:44 Pulse 93 10/15/16 07:44 Resp 16 10/15/16 07:44 BP 137/74 10/15/16 07:44 Pulse Ox 94 L 10/15/16 07:44 Intake & Output 10/14/16 10/15/16 10/15/16 18:59 06:59 18:59 Intake Total 0 701 Output Total 1200 6650 Balance -1200 -6650 701 Weight 83.189 kg Intake: IV 701 Oral 0 Output: Urine 1200 6650 Uretheral (Beckman) 1200 Other: Voiding Method Indwelling Catheter Indwelling Catheter - Exam - Constitutional General appearance: no average body habitus, cooperative, no disheveled, no mild distress, no morbidly obese, no acute distress, no obese, no severe distress, no thin - EENT Eyes: no abnormal pupil, no anicteric sclerae, no disc margins sharp, no edentulous, no EOMI, no PERRLA, no fundus normal, no photophobia, no dentition normal, no poor dentition, no ptosis, no scleral icterus, normal appearance ENT: no hard of hearing, no hearing grossly normal, no NA/AT, normal oropharynx , no other, no pharyngeal erythema, no thrush, no tonsillar exudates, no tonsillar swelling Ears: bilateral: normal - Neck Neck: no lymphadenopathy, normal ROM, no other, no rigidity, no stridor, no thyromegaly Carotids: bilateral: upstroke normal Thyroid: bilateral: normal size - Respiratory Respiratory: bilateral: CTA, diminished - Cardiovascular Rhythm: irregularly irregular Heart sounds: normal: S1, S2 Abnormal Heart Sounds: systolic murmur, S3 Gallop - Gastrointestinal General gastrointestinal: no absent bowel sounds, decreased bowel sounds, no distended, no hepatomegaly, no hyperactive bowel sounds, normal bowel sounds, no organomegaly, no rigid, no scaphoid, soft, no splenomegaly, no tenderness, no umbilical hernia, no ventral hernia - Integumentary right hip area had mild tenderness and discomfort in the right groin also had that the leg mildly externally rotated. Integumentary: calor, no cellulitis, no cyanotic, no decreased turgor, no flushed, no jaundiced, normal, normal turgor, pale, no rash, no ulcer - Neurologic Neurologic: CNII-XII intact - Musculoskeletal Musculoskeletal: no gait normal, generalized weakness, no strength equal bilaterally, no right sided weakness, no left sided weakness - Psychiatric Psychiatric: no A&O x's 3, appropriate affect, no intact judgment & insight - Labs CBC & Chem 7: 10/15/16 06:59 10/15/16 06:59 Labs: Abnormal Lab Results - Last 24 Hours (Table) 10/15/16 10/15/16 Range/Units 06:59 06:59 Lymphocytes # 0.8 L (1.0-4.8) k/uL Glucose 101 H (74-99) mg/dL Total Protein 5.8 L (6.3-8.2) g/dL Albumin 3.1 L (3.5-5.0) g/dL Assessment and Plan Plan: Assessment and Plan Plan: 1 right hip fracture: Patient will be going for surgery for anterior direct hip replacement Patient will be clear for surgery. Make sure patient is back on her A. fib medication regime along with her congestive heart failure medication except anticoagulation. Also consult cardiology for cardiology clearance. from medical standpoint I don't see any absolute contraindication for surgery patient will be watch hemodynamically during after surgery. 2 CAD: Post PCI and stent placement has been doing well her licensing representative apparently wasn't [employer] has not seen a licensing representative down so far. 3 A. fib with RVR: Pulse rates under control currently patient is doing well on verapamil andamiodarone 100 mg daily and 4 anticoagulation has been on pradaxa, pradaxa was held for now until the surgery. 4 post pacemaker: Has been watch by cardiology regular basis. 5 advance dementia: Patient has been on Lexapro and Zyprexa along with trazodone at nighttime. 6 hyperlipidemia: Has been on Lipitor 20 mg a day. 7 congestive heart failure: Mostly systolic dysfunction chronic has been on Lasix fluid restriction and verapamil. 8 hypothyroidism: Continue levothyroxine 75 g daily. 9 chronic anemia: Iron deficient patient has been doing well on iron supplement. 10 GI prophylaxis: Patient will be on omeprazole 20 mg daily. 11 DVT prophylaxis: Patient was on pradaxa as soon as she is done with surgery back on medication otherwise will be on heparin subcutaneous. 12.CODE STATUS: DO NOT RESUSCITATE. 13. Surgery today.
[2016-10-15] MEDS: ATORVASTATIN 20 MG TAB PO SCH (15:17)
[2016-10-15] MEDS: PANTOPRAZOLE 40 MG TABLET PO SCH (15:17)
[2016-10-15] MEDS: AMIODARONE 200 MG TAB PO SCH (15:17)
[2016-10-15] MEDS: ESCITALOPRAM 10 MG TAB PO SCH (15:18)
[2016-10-15] MEDS: VERAPAMIL SR 120 MG TABLET.ER PO SCH (15:18)
[2016-10-15] MEDS: MULTIVITAMINS, THERA 1 EACH TAB PO SCH (15:20)
[2016-10-15] MEDS ORDERED: SODIUM CHLORIDE 0.9% 500 ML IV ONE (15:31)
[2016-10-15] MEDS: FERROUS SULFATE 325 MG TAB PO SCH (16:01)
[2016-10-15] MEDS: LACTATED RINGERS 1,000 ML IV SCH (16:02)
[2016-10-15] MEDS: ceFAZolin 2 GM in SODIUM CHLORIDE 0.9% 100 ML IVPB SCH (16:02)
[2016-10-15] MEDS: OLANZapine 2.5 MG TAB PO SCH (21:16)
[2016-10-15] MEDS: traZODone HCL 100 MG TAB PO SCH (21:16)
[2016-10-15] MEDS: SENNOSIDES-DOCUSATE SODIUM 1 EACH TAB PO SCH (21:16)
[2016-10-16] MEDS: ceFAZolin 2 GM in SODIUM CHLORIDE 0.9% 100 ML IVPB SCH (01:02)
[2016-10-16] MEDS: LACTATED RINGERS 1,000 ML IV SCH ×2 (01:03→12:31)
[2016-10-16 01:46] VITALS: RESP 16
[2016-10-16] MEDS: MORPHINE SULFATE 4 MG/ML SYRINGE IV SCH ×3 (03:58→12:32)
[2016-10-16] MEDS: LEVOTHYROXINE 75 MCG TAB PO SCH (05:36)
[2016-10-16 07:27] LABS: Basophils % (A) 0 %; CH 30.2; CHCM 32.6; Eosinophils % (A) 0 %; HCT 27.7 % (34.0-46.0); HDW 2.71; Luc # (Auto) 0.11; Luc % (Auto) 1; Lymphocytes # (A) 0.5 k/uL (1.0-4.8); Lymphocytes % (A) 6 %; MCH 31.1 pg (25.0-35.0); MCHC 33.5 g/dL (31.0-37.0); MCV 92.8 fL (80.0-100.0); Mean Platelet Volume 6.9; Monocytes # (A) 0.6 k/uL (0-1.0); Monocytes % (A) 7 %; Neutrophils # (A) 7.2 k/uL (1.3-7.7); Neutrophils % (A) 86 %; RBC 2.98 m/uL (3.80-5.40); RDW 13.9 % (11.5-15.5); WBC 8.5 k/uL (3.8-10.6); WBC (Perox) 9.09
[2016-10-16 07:40] LABS: HGB 9.3 gm/dL (11.4-16.0)
[2016-10-16 08:58] LABS: ALT 33 U/L (9-52); AST 43 U/L (14-36); Alkaline Phosphatase 64 U/L (38-126); Anion Gap 6 mmol/L; Blood Urea Nitrogen 12 mg/dL (7-17); Calcium 8.2 mg/dL (8.4-10.2); Carbon Dioxide 25 mmol/L (22-30); Chloride 103 mmol/L (98-107); Glucose 137 mg/dL (74-99); Non-African American GFR(MDRD) >60 (>60 ml/min/1.73 sqM); Sodium 134 mmol/L (137-145); Total Bilirubin 0.5 mg/dL (0.2-1.3); Total Protein 4.8 g/dL (6.3-8.2)
[2016-10-16] MEDS ORDERED: FAMOTIDINE 20 MG TAB PO SCH (09:00)
[2016-10-16] MEDS ORDERED: ENOXAPARIN 40 MG/0.4 ML SYRINGE SQ SCH (09:00)
[2016-10-16] MEDS: ATORVASTATIN 20 MG TAB PO SCH (10:40)
[2016-10-16] MEDS: AMIODARONE 200 MG TAB PO SCH (10:40)
[2016-10-16] MEDS: ESCITALOPRAM 10 MG TAB PO SCH (10:41)
[2016-10-16] MEDS: PANTOPRAZOLE 40 MG TABLET PO SCH (10:41)
[2016-10-16] MEDS: VERAPAMIL SR 120 MG TABLET.ER PO SCH (10:41)
[2016-10-16] MEDS: MULTIVITAMINS, THERA 1 EACH TAB PO SCH (13:05)
--- NOTE | 2016-10-16 15:22 | P.PN ---
Subjective 76-year-old female who moved from [facility] recently used to live in town years ago. Patient apparently has been having significant symptom of advanced dementia had move to [facility] long-term over 4 weeks ago and has been doing well until 10/12/2016 when found on the floor after simple fall with no other major injury but had significant pain and discomfort in the hip area in the right side. Patient was transferred to the emergency department at [facility] x-ray of the hip showed intratrochanteric fracture of the right side. Patient had no other injury her lab and rest of workup came back negative. Patient was admitted to the hospital by Dr. Lares service for potential surgery either hemiarthroplasty hour ORIF of the right hip. Unfortunately patient is on anticoagulation with paradoxical for A. fib which will be held for at least the next 72 hours before taking a higher chance for bleed after surgery. Also patient will be tone medically and we'll consult cardiology for clearance before surgery. 10/14: Patient is laying down in bed in no apparent distress, she is scheduled to go for surgical intervention in the next 24 hours, she denies any chest pain , shortness breath, she will was seen by cardiology, she denies any abdominal pain, her pain is feeling much controlled. 10/15: Patient is going for surgery today. 10/16: Objective - Vital Signs Vital signs: Vital Signs Temp 99.0 F 10/16/16 08:00 Pulse 77 10/16/16 08:00 Resp 16 10/16/16 08:00 BP 114/54 10/16/16 08:00 Pulse Ox 98 10/16/16 08:00 Intake & Output 10/15/16 10/16/16 10/16/16 18:59 06:59 18:59 Intake Total 1501 1440 Output Total 450 500 Balance 1051 1440 -500 Weight 83.189 kg Intake: IV 1501 Intake, IV Titration 1200 Amount Lactated Ringers 1,000 ml 1200 @ 100 mls/hr IV .Q10H YANCY Rx#:[id number] Oral 240 Output: Urine 150 500 Uretheral (Beckman) 500 Estimated Blood Loss 300 Other: Voiding Method Indwelling Catheter Indwelling Catheter # Voids 900 - Exam General appearance: no average body habitus, cooperative, no disheveled, no mild distress, no morbidly obese, no acute distress, no obese, no severe distress, no thin - EENT Eyes: no abnormal pupil, no anicteric sclerae, no disc margins sharp, no edentulous, no EOMI, no PERRLA, no fundus normal, no photophobia, no dentition normal, no poor dentition, no ptosis, no scleral icterus, normal appearance ENT: no hard of hearing, no hearing grossly normal, no NA/AT, normal oropharynx , no other, no pharyngeal erythema, no thrush, no tonsillar exudates, no tonsillar swelling Ears: bilateral: normal - Neck Neck: no lymphadenopathy, normal ROM, no other, no rigidity, no stridor, no thyromegaly Carotids: bilateral: upstroke normal Thyroid: bilateral: normal size - Respiratory Respiratory: bilateral: CTA, diminished - Cardiovascular Rhythm: irregularly irregular Heart sounds: normal: S1, S2 Abnormal Heart Sounds: systolic murmur, S3 Gallop - Gastrointestinal General gastrointestinal: no absent bowel sounds, decreased bowel sounds, no distended, no hepatomegaly, no hyperactive bowel sounds, normal bowel sounds, no organomegaly, no rigid, no scaphoid, soft, no splenomegaly, no tenderness, no umbilical hernia, no ventral hernia - Integumentary right hip area had mild tenderness and discomfort in the right groin also had that the leg mildly externally rotated. Integumentary: calor, no cellulitis, no cyanotic, no decreased turgor, no flushed, no jaundiced, normal, normal turgor, pale, no rash, no ulcer - Neurologic Neurologic: CNII-XII intact - Musculoskeletal Musculoskeletal: no gait normal, generalized weakness, no strength equal bilaterally, no right sided weakness, no left sided weakness - Psychiatric Psychiatric: no A&O x's 3, appropriate affect, no intact judgment & insight - Labs CBC & Chem 7: 10/16/16 07:00 10/16/16 06:56 Labs: Abnormal Lab Results - Last 24 Hours (Table) 10/16/16 10/16/16 Range/Units 06:56 07:00 RBC 2.98 L (3.80-5.40) m/uL Hgb 9.3 L D (11.4-16.0) gm/dL Hct 27.7 L (34.0-46.0) % Lymphocytes # 0.5 L (1.0-4.8) k/uL Sodium 134 L (137-145) mmol/L Glucose 137 H (74-99) mg/dL Calcium 8.2 L (8.4-10.2) mg/dL AST 43 H (14-36) U/L Total Protein 4.8 L (6.3-8.2) g/dL Albumin 2.4 L (3.5-5.0) g/dL Assessment and Plan Plan: 1 right hip fracture status post anterior right total hip arthroplasty Also consult cardiology for cardiology clearance. Continue current pain management. Continue activity per orthopedics. 2 CAD: Post PCI and stent placement has been doing well her solid waste collector apparently wasn't [place] has not seen a solid waste collector down so far. 3 A. fib with RVR: Pulse rates under control currently patient is doing well on verapamil andamiodarone 100 mg daily and 4 anticoagulation has been on pradaxa, pradaxa was held for now until the surgery. 4 post pacemaker: Has been watch by cardiology regular basis. 5 advance dementia: Patient has been on Lexapro and Zyprexa along with trazodone at nighttime. 6 hyperlipidemia: Has been on Lipitor 20 mg a day. 7 congestive heart failure: Mostly systolic dysfunction chronic has been on Lasix fluid restriction and verapamil. 8 hypothyroidism: Continue levothyroxine 75 g daily. 9 chronic anemia: Iron deficient patient has been doing well on iron supplement. 10 GI prophylaxis: Patient will be on omeprazole 20 mg daily. 11 DVT prophylaxis: Patient was on pradaxa as soon as she is done with surgery back on medication otherwise will be on heparin subcutaneous. 12.CODE STATUS: DO NOT RESUSCITATE. Discharge plan: Subacute rehab at [facility] Impression and plan of care have been directed as dictated by the signing physician. Taylor Dexter nurse practitioner acting as scribe for signing physician. Time with Patient: Greater than 30
--- NOTE | 2016-10-16 16:17 | P.PN ---
Subjective Principal diagnosis: Status post right total hip arthroplasty Patient is seen today in a few different occasions, she is resting in her hospital chair. Her pain is well-controlled. She appears to be in no acute distress. Her mental status is altered due to the dementia, so her history that is provided as off topic. They didn't get her up to the chair today. Objective - Vital Signs Vital signs: Vital Signs Temp 98.5 F 10/16/16 15:39 Pulse 73 10/16/16 15:39 Resp 16 10/16/16 08:00 BP 109/85 10/16/16 15:39 Pulse Ox 96 10/16/16 15:39 Intake & Output 10/15/16 10/16/16 10/16/16 18:59 06:59 18:59 Intake Total 1501 1440 Output Total 450 500 Balance 1051 1440 -500 Weight 83.189 kg Intake: IV 1501 Intake, IV Titration 1200 Amount Lactated Ringers 1,000 ml 1200 @ 100 mls/hr IV .Q10H YANCY Rx#:[id number] Oral 240 Output: Urine 150 500 Uretheral (Beckman) 500 Estimated Blood Loss 300 Other: Voiding Method Indwelling Catheter Indwelling Catheter # Voids 900 - Exam Right lower extremity: Incision is clean, dry and intact. Minimal soft tissue swelling present around the hip. Calf is soft, no tenderness with palpation. Plantar flexion, dorsiflexion, EHL, FHL are intact. Logroll maneuver reproduces no pain in the hip. Sensory exam to light touch throughout the extremities intact, dorsal pedis pulses 2+. - Labs CBC & Chem 7: 10/16/16 07:00 10/16/16 06:56 Labs: Abnormal Lab Results - Last 24 Hours (Table) 10/16/16 10/16/16 Range/Units 06:56 07:00 RBC 2.98 L (3.80-5.40) m/uL Hgb 9.3 L D (11.4-16.0) gm/dL Hct 27.7 L (34.0-46.0) % Lymphocytes # 0.5 L (1.0-4.8) k/uL Sodium 134 L (137-145) mmol/L Glucose 137 H (74-99) mg/dL Calcium 8.2 L (8.4-10.2) mg/dL AST 43 H (14-36) U/L Total Protein 4.8 L (6.3-8.2) g/dL Albumin 2.4 L (3.5-5.0) g/dL Assessment and Plan Plan: Assessment: 1. Postop day #1 status post right total hip arthroplasty Plan: 1. Pain control, continue low-dose medication 2. Weight-bear as tolerated with walker 3. Daily dressing changes/ice the hip 4. GI and DVT prophylaxis, continue subcu medication 5. Encourage incentive spirometer 6. Medical recommendations 7. Discharge planning: Patient will likely be discharged to rehab tomorrow Time with Patient: Less than 30
--- NOTE | 2016-10-16 16:28 | P.DS ---
Providers Date of admission: 10/12/16 16:34 Expected date of discharge: 10/17/16 Attending physician: Pérez Lares Primary care physician: Jamison Andrade Hospital Course: Date of admission: 10/12/2016 Date of discharge: 10/17/2016 Admission diagnosis: Right femoral neck fracture Discharge diagnosis: Status post direct anterior right total hip arthroplasty Attending physician: Dr. Lares Surgical procedures: Direct anterior right total hip arthroplasty Brief history: Patient is a 76-year-old female who was brought to [facility] emergency room from [facility]. Patient was found on the floor in her room. Patient was unable to bear weight on the right leg and had extreme pain in the right hip region. Upon arrival to the hospital, imaging test demonstrated a right femoral neck fracture. She was admitted under our orthopedic care with proper consults for clearances. Patient was scheduled for surgery on 10/15/2016. Hospital course: Details of patient's surgery can be found in operative report. Patient tolerated the procedure well and was subsequently transported to orthopedic floor. Patient's orthopeidc and medical care was provided daily. Patient had daily laboratory tests performed for evaluation of overall blood counts. Patient had daily physical therapy to include strengthening range of motion as well as education with walker ambulation. Patient was treated with Lovenox for their postoperative DVT prophylaxis during their inpatient stay. Patient was noted to have a relatively uneventful postoperative course. Patient reported satisfactory pain control with oral pain medications by postoperative day 0. Patient showed satisfactory progress with physical therapy. Patient moved steadily through the program and had no difficulty meeting the goals by postoperative day 2 . Given patient's otherwise satisfactory course and having met physical therapy goals, plan is to discharge patient rehab on postoperative day 2 . Discharge condition/disposition: Patient will be discharged rehab in stable condition. Discharge medications: Instructions are given on resumption of patient's normal daily medications per primary care recommendation, in addition patient will be prescribed [place] 5 mg/325 mg. Discharge instructions: 1. Wound care and infection precautions, keep incision dry and covered while showering, no lotions, creams, moisturizers. No soaking, tubs, pools, hottubs. Do not scrub over the incision. 2. Weight-bear as tolerated with walker / cane until follow-up. 3. Ice and elevate when necessary. Do not exceed 20 minutes per hour with ice pack. 4. Utilize compression sleeve until seen at first follow up appointment. 5. Visiting nursing care. 6. Home physical therapy. 7. Pain meds and anticoagulants per prescription. 8. Pain medication has potential to cause constipation. Increase oral fluid and fiber intake. Contact primary care provider if you have not had a bowel movement within 48 hours after discharge 9. No anti-inflammatory medication until discussed at first post operative visit, this including Motrin, Aleve, Mobic, Diclofenac. 10. Follow up in office at 2 weeks postop with Ryan Orta PA-C 11. Follow up with your primary care doctor 7-10 days after discharge. 12. Contact [facility] with any questions, . Procedures: Direct anterior right total hip arthroplasty Patient Condition at Discharge: Fair Plan - Discharge Summary New Discharge Prescriptions: Hydrocodone/Acetaminophen [[place] 5-325] 1 each PO Q6HR PRN #40 tab PRN Reason: Pain Discharge Medication List Acetaminophen Tab [Tylenol Tab] 1,000 mg PO Q4H PRN 10/12/16 [History] Amiodarone HCl [Pacerone] 100 mg PO DAILY 10/12/16 [History] Ascorbic Acid [Vitamin C] 500 mg PO DAILY@169910/12/16 [History] Aspirin 81 mg PO DAILY@169910/12/16 [History] Atorvastatin [Lipitor] 20 mg PO DAILY 10/12/16 [History] Bisacodyl [Dulcolax] 10 mg RECTAL DAILY PRN 10/12/16 [History] Calcium Carbonate/Vitamin D3 [Os-Aditya 500+D3 Caplet] 1 tab PO DAILY@1699 [History] Dabigatran [Pradaxa] 150 mg PO BID@0800,169910/12/16 [History] Escitalopram Oxalate [Lexapro] 10 mg PO DAILY 10/12/16 [History] Ferrous Sulfate [Feosol] 325 mg PO DAILY@169910/12/16 [History] Furosemide [Lasix] 40 mg PO MOWEFR@169910/12/16 [History] Levothyroxine Sodium [Synthroid] 75 mcg PO DAILY 10/12/16 [History] Magnesium Hydroxide [Milk of Magnesia] 2,400 mg PO DAILY PRN 10/12/16 [History] Multivitamins, Thera [Multivitamin (formulary)] 1 tab PO DAILY@1700 10/12/16 [ History] Na Phos,M-B/Na Phos,Di-Ba [Fleet Adult] 133 ml RECTAL DAILY PRN 10/12/16 [ History] OLANZapine [ZyPREXA] 2.5 mg PO HS 10/12/16 [History] Omeprazole 20 mg PO DAILY 10/12/16 [History] Potassium Chloride ER [K-Dur 20] 20 meq PO MOWEFR@1700 10/12/16 [History] Verapamil HCl [Verapamil ER] 120 mg PO DAILY 10/12/16 [History] traMADol HCL [Ultram] 50 mg PO Q6HR PRN 10/12/16 [History] traZODone HCL 100 mg PO HS 10/12/16 [History] Hydrocodone/Acetaminophen [[place] 5-325] 1 each PO Q6HR PRN #40 tab 10/17/16 [Rx] Follow up Appointment(s)/Referral(s): Jamison Andrade MD [Primary Care Provider] - 1-2 days Jonathan Orta PAC [PHYSICIAN ADVICE NURSE] - 2 Weeks Activity/Diet/Wound Care/Special Instructions: Orthopedic Discharge Instructions: 1. Wound care and infection precautions, keep incision dry and covered while showering, no lotions, creams, moisturizers. No soaking, pools, hot tubs. Do not scrub over incision. 2. Weight-bear as tolerated with walker / cane until follow-up. 3. Ice and elevate when necessary. Do not exceed 20 minutes per hour with ice pack. 4. Utilize compression sleeve until seen at first follow up appointment. 5. Visiting nursing care. 6. Home physical therapy. 7. Pain meds and anticoagulants per prescription. 8. Pain medication has potential to cause constipation. Increase oral fluid and fiber intake. Contact primary care provider if you have not had a bowel movement within 48 hours after discharge. 9. No anti-inflammatory medication until discussed at first post operative visit, this including Motrin, Aleve, Mobic, Diclofenac. 10. Follow up in office at 2 weeks postop with Ryan Orta PA-C 11. Follow up with your primary care doctor 7-10 days after discharge. 12. Contact [facility] with any questions, . Discharge Disposition: TRANSFER TO SNF/ECF
[2016-10-16] MEDS: DABIGATRAN 150 MG CAP PO SCH (18:14)
[2016-10-16] MEDS: POTASSIUM CHLORIDE ER 20 MEQ TAB.ER PO SCH (18:15)
[2016-10-16] MEDS: FERROUS SULFATE 325 MG TAB PO SCH (18:15)
[2016-10-16] MEDS: FUROSEMIDE 40 MG TAB PO SCH (18:15)
[2016-10-16] MEDS: HYDROcodone/APAP 5-325MG 1 EACH TAB PO PRN (18:32)
[2016-10-16] MEDS: traZODone HCL 100 MG TAB PO SCH (19:49)
[2016-10-16] MEDS: SENNOSIDES-DOCUSATE SODIUM 1 EACH TAB PO SCH (19:49)
[2016-10-16] MEDS: OLANZapine 2.5 MG TAB PO SCH (19:49)
[2016-10-17] MEDS: HYDROcodone/APAP 5-325MG 1 EACH TAB PO PRN ×2 (01:42→09:49)
[2016-10-17] MEDS: LACTATED RINGERS 1,000 ML IV SCH ×2 (04:22→09:42)
[2016-10-17] MEDS: LEVOTHYROXINE 75 MCG TAB PO SCH (05:50)
[2016-10-17 07:22] LABS: Basophils % (A) 0 %; CH 30.2; CHCM 32.2; Eosinophils % (A) 0 %; HCT 26.1 % (34.0-46.0); HDW 2.56; HGB 8.3 gm/dL (11.4-16.0); Luc # (Auto) 0.11; Luc % (Auto) 2; Lymphocytes % (A) 15 %; MCH 30.1 pg (25.0-35.0); MCHC 31.9 g/dL (31.0-37.0); MCV 94.4 fL (80.0-100.0); Monocytes # (A) 0.5 k/uL (0-1.0); Monocytes % (A) 7 %; Neutrophils # (A) 5.4 k/uL (1.3-7.7); Neutrophils % (A) 77 %; RBC 2.76 m/uL (3.80-5.40); RDW 14.4 % (11.5-15.5); WBC (Perox) 7.52
[2016-10-17 07:51] VITALS: BP 112/53; PULSE 95; TEMP 98.7
[2016-10-17] MEDS: DABIGATRAN 150 MG CAP PO SCH (09:47)
[2016-10-17] MEDS: AMIODARONE 200 MG TAB PO SCH (09:48)
[2016-10-17] MEDS: VERAPAMIL SR 120 MG TABLET.ER PO SCH (09:48)
[2016-10-17] MEDS: ATORVASTATIN 20 MG TAB PO SCH (09:48)
[2016-10-17] MEDS: PANTOPRAZOLE 40 MG TABLET PO SCH (09:49)
[2016-10-17] MEDS: ESCITALOPRAM 10 MG TAB PO SCH (09:49)
--- NOTE | 2016-10-17 10:30 | P.PN ---
Subjective Principal diagnosis: Status post right total hip arthroplasty Patient is seen today in a few different occasions, she is resting in her hospital chair. Her pain is well-controlled. She appears to be in no acute distress. Her mental status is altered due to the dementia, so her history that is provided as off topic. They didn't get her up to the chair today. Objective - Vital Signs Vital signs: Vital Signs Temp 98.7 F 10/17/16 07:50 Pulse 95 10/17/16 07:50 Resp 16 10/17/16 07:50 BP 112/53 10/17/16 07:50 Pulse Ox 94 L 10/17/16 07:50 Intake & Output 10/16/16 10/17/16 10/17/16 18:59 06:59 18:59 Intake Total 20 350 Output Total 700 Balance -680 350 Intake: Oral 20 350 Output: Urine 700 Uretheral (Beckman) 500 Other: Voiding Method Incontinent Incontinent Incontinent # Voids 1 2 1 - Exam Right lower extremity: Incision is clean, dry and intact. Minimal soft tissue swelling present around the hip. Calf is soft, no tenderness with palpation. Plantar flexion, dorsiflexion, EHL, FHL are intact. Logroll maneuver reproduces no pain in the hip. Sensory exam to light touch throughout the extremities intact, dorsal pedis pulses 2+. - Labs CBC & Chem 7: 10/17/16 06:43 10/16/16 06:56 Labs: Abnormal Lab Results - Last 24 Hours (Table) 10/17/16 Range/Units 06:43 RBC 2.76 L (3.80-5.40) m/uL Hgb 8.3 L (11.4-16.0) gm/dL Hct 26.1 L (34.0-46.0) % Assessment and Plan Plan: Assessment: 1. Postop day #2 status post right total hip arthroplasty Plan: 1. Pain control, will be discharged home on oral medication 2. Weight-bear as tolerated with walker 3. Daily dressing changes/ice the hip 4. GI and DVT prophylaxis, we will resume home dose of Pradaxa 5. Encourage incentive spirometer 6. Medical recommendations 7. Discharge planning: Patient will be discharged today Time with Patient: Less than 30
--- NOTE | 2016-10-17 13:35 | P.PN ---
Subjective 76-year-old female who moved from [facility] recently used to live in town [place] ago. Patient apparently has been having significant symptom of advanced dementia had move to [facility] long-term over 4 weeks ago and has been doing well until 10/12/2016 when found on the floor after simple fall with no other major injury but had significant pain and discomfort in the hip area in the right side. Patient was transferred to the emergency department at [facility] x-ray of the hip showed intratrochanteric fracture of the right side. Patient had no other injury her lab and rest of workup came back negative. Patient was admitted to the hospital by Dr. Lares service for potential surgery either hemiarthroplasty hour ORIF of the right hip. Unfortunately patient is on anticoagulation with paradoxical for A. fib which will be held for at least the next 72 hours before taking a higher chance for bleed after surgery. Also patient will be tone medically and we'll consult cardiology for clearance before surgery. 10/14: Patient is laying down in bed in no apparent distress, she is scheduled to go for surgical intervention in the next 24 hours, she denies any chest pain , shortness breath, she will was seen by cardiology, she denies any abdominal pain, her pain is feeling much controlled. 10/15: Patient is going for surgery today. 10/16: Patient has been resumed back on Pradaxa. 10/17: Patient is scheduled for discharge to sn[facility] today under the care of Dr. Andrade. Medication reconciliation reviewed and completed. Objective - Vital Signs Vital signs: Vital Signs Temp 98.7 F 10/17/16 07:50 Pulse 95 10/17/16 07:50 Resp 16 10/17/16 07:50 BP 112/53 10/17/16 07:50 Pulse Ox 94 L 10/17/16 07:50 Intake & Output 10/16/16 10/17/16 10/17/16 18:59 06:59 18:59 Intake Total 20 350 Output Total 700 Balance -680 350 Intake: Oral 20 350 Output: Urine 700 Uretheral (Beckman) 500 Other: Voiding Method Incontinent Incontinent Incontinent # Voids 1 2 1 - Exam General appearance: no average body habitus, cooperative, no disheveled, no mild distress, no morbidly obese, no acute distress, no obese, no severe distress, no thin - EENT Eyes: no abnormal pupil, no anicteric sclerae, no disc margins sharp, no edentulous, no EOMI, no PERRLA, no fundus normal, no photophobia, no dentition normal, no poor dentition, no ptosis, no scleral icterus, normal appearance ENT: no hard of hearing, no hearing grossly normal, no NA/AT, normal oropharynx , no other, no pharyngeal erythema, no thrush, no tonsillar exudates, no tonsillar swelling Ears: bilateral: normal - Neck Neck: no lymphadenopathy, normal ROM, no other, no rigidity, no stridor, no thyromegaly Carotids: bilateral: upstroke normal Thyroid: bilateral: normal size - Respiratory Respiratory: bilateral: CTA, diminished - Cardiovascular Rhythm: irregularly irregular Heart sounds: normal: S1, S2 Abnormal Heart Sounds: systolic murmur, S3 Gallop - Gastrointestinal General gastrointestinal: no absent bowel sounds, decreased bowel sounds, no distended, no hepatomegaly, no hyperactive bowel sounds, normal bowel sounds, no organomegaly, no rigid, no scaphoid, soft, no splenomegaly, no tenderness, no umbilical hernia, no ventral hernia - Integumentary right hip area had mild tenderness and discomfort in the right groin also had that the leg mildly externally rotated. Integumentary: calor, no cellulitis, no cyanotic, no decreased turgor, no flushed, no jaundiced, normal, normal turgor, pale, no rash, no ulcer - Neurologic Neurologic: CNII-XII intact - Musculoskeletal Musculoskeletal: no gait normal, generalized weakness, no strength equal bilaterally, no right sided weakness, no left sided weakness - Psychiatric Psychiatric: no A&O x's 3, appropriate affect, no intact judgment & insight - Labs CBC & Chem 7: 10/17/16 06:43 10/16/16 06:56 Labs: Abnormal Lab Results - Last 24 Hours (Table) 10/17/16 Range/Units 06:43 RBC 2.76 L (3.80-5.40) m/uL Hgb 8.3 L (11.4-16.0) gm/dL Hct 26.1 L (34.0-46.0) % Assessment and Plan Plan: 1 right hip fracture status post anterior right total hip arthroplasty Also consult cardiology for cardiology clearance. Continue current pain management. Continue activity per orthopedics. 2 CAD: Post PCI and stent placement has been doing well her gin clerk apparently wasn't [place] has not seen a gin clerk down so far. 3 A. fib with RVR: Pulse rates under control currently patient is doing well on verapamil andamiodarone 100 mg daily and 4 anticoagulation has been on pradaxa, pradaxa was held for now until the surgery. 4 post pacemaker: Has been watch by cardiology regular basis. 5 advance dementia: Patient has been on Lexapro and Zyprexa along with trazodone at nighttime. 6 hyperlipidemia: Has been on Lipitor 20 mg a day. 7 congestive heart failure: Mostly systolic dysfunction chronic has been on Lasix fluid restriction and verapamil. 8 hypothyroidism: Continue levothyroxine 75 g daily. 9 chronic anemia: Iron deficient patient has been doing well on iron supplement. 10 GI prophylaxis: Patient will be on omeprazole 20 mg daily. 11 DVT prophylaxis: Patient was on pradaxa as soon as she is done with surgery back on medication otherwise will be on heparin subcutaneous. 12.CODE STATUS: DO NOT RESUSCITATE. Discharge plan: Subacute rehab at [facility] under the care of Dr. Andrade Impression and plan of care have been directed as dictated by the signing physician. Taylor Dexter nurse practitioner acting as scribe for signing physician. Time with Patient: Greater than 30
== END 2016-10-17 13:21 | DRG 470 ==
LOC: EC 15:51 → 3SUR 16:34
PROVIDERS: ADMIT Orthopaedic Surgery; ATTEND Orthopaedic Surgery
PROC: 0SR902A Replacement of Right Hip Joint with Metal on Polyethylene Synthetic Substitute, Uncemented, Open Approach (ICD-10-PCS; principal; 2016-10-12)
DX: S72.001A Fracture of unspecified part of neck of right femur, initial encounter for closed fracture (principal); F01.50 Vascular dementia, unspecified severity, without behavioral disturbance, psychotic disturbance, mood disturbance, and anxiety; K74.60 Unspecified cirrhosis of liver; I10 Essential (primary) hypertension; I48.91 Unspecified atrial fibrillation; E78.5 Hyperlipidemia, unspecified; M16.11 Unilateral primary osteoarthritis, right hip; F32.9 Major depressive disorder, single episode, unspecified; G47.30 Sleep apnea, unspecified; I25.10 Atherosclerotic heart disease of native coronary artery without angina pectoris; I73.9 Peripheral vascular disease, unspecified; K21.9 Gastro-esophageal reflux disease without esophagitis; Z66 Do not resuscitate; Z79.01 Long term (current) use of anticoagulants; Z79.82 Long term (current) use of aspirin; Z79.899 Other long term (current) drug therapy; Z82.49 Family history of ischemic heart disease and other diseases of the circulatory system; Z86.73 Personal history of transient ischemic attack (TIA), and cerebral infarction without residual deficits; Z87.891 Personal history of nicotine dependence; Z91.040 Latex allergy status; Z88.0 Allergy status to penicillin
CPT/HCPCS: 36415; 71020; 73501; 73502; 80053; 81003; 82550; 82553; 82728; 83540; 83550; 83735; 84100; 84484; 85025; 85027; 85610; 85730; 87086; 88305; 88311; 93005; 94760; 96361; 96374; 96375; 99285

== ENCOUNTER 2019-06-22 13:12 | Inpatient (IN) | payer MEDICARE ==
[2019-06-22] MEDS ORDERED: SODIUM CHLORIDE 0.9% 500 ML 500 ML IV ONE (13:18)
--- NOTE | 2019-06-22 13:30 | ED ---
General Adult HPI - General Stated complaint: altered mental status Time Seen by Provider: 06/22/19 13:14 Source: patient, EMS, RN notes reviewed, old records reviewed Mode of arrival: EMS Limitations: altered mental status - History of Present Illness Initial comments: 79-year-old female presenting with confusion and low oxygen saturation. Patient has history of dementia, she is predominantly bedbound at the [facility]. She's been confused since yesterday. Staff reported that she had been hoarding her food which is atypical for this patient. They also noted that her oxygen saturation on room air was dipping into the 80s. Patient alert at the time my evaluation. She is alert and oriented 2. She has no pain complaints. Denies dyspnea. Unable to contribute significantly to the history. - Related Data Home Medications Medication Instructions Recorded Confirmed Acetaminophen Tab [Tylenol] 1,000 mg PO Q4H PRN 10/12/16 10/12/16 Amiodarone HCl [Pacerone] 100 mg PO DAILY 10/12/16 10/12/16 Ascorbic Acid [Vitamin C] 500 mg PO DAILY@169910/12/16 10/12/16 Aspirin 81 mg PO DAILY@169910/12/16 10/12/16 Atorvastatin [Lipitor] 20 mg PO DAILY 10/12/16 10/12/16 Bisacodyl [Dulcolax] 10 mg RECTAL DAILY PRN 10/12/16 10/12/16 Calcium Carbonate/Vitamin D3 1 tab PO DAILY@169910/12/16 10/12/16 [Os-Aditya 500-Vit D3 200 Caplet] Dabigatran [Pradaxa] 150 mg PO BID@0800,169910/12/16 10/12/16 Escitalopram Oxalate [Lexapro] 10 mg PO DAILY 10/12/16 10/12/16 Ferrous Sulfate [Iron (65 MG 325 mg PO DAILY@169910/12/16 10/12/16 Elemental)] Furosemide [Lasix] 40 mg PO MOWEFR@169910/12/16 10/12/16 Levothyroxine Sodium [Synthroid] 75 mcg PO DAILY 10/12/16 10/12/16 Magnesium Hydroxide [Milk of 2,400 mg PO DAILY PRN 10/12/16 10/12/16 Magnesia] Multivitamins, Thera [Multivitamin 1 tab PO DAILY@1700 10/12/16 10/12/16 (formulary)] Na Phos,M-B/Na Phos,Di-Ba [Fleet 133 ml RECTAL DAILY PRN 10/12/16 10/12/16 Adult] OLANZapine [ZyPREXA] 2.5 mg PO HS 10/12/16 10/12/16 Omeprazole 20 mg PO DAILY 10/12/16 10/12/16 Potassium Chloride ER [K-Dur 20] 20 meq PO MOWEFR@1700 10/12/16 10/12/16 Verapamil HCl [Verapamil ER] 120 mg PO DAILY 10/12/16 10/12/16 traZODone HCL 100 mg PO HS 10/12/16 10/12/16 Previous Rx's Medication Instructions Recorded Hydrocodone/Acetaminophen [Walker 1 each PO Q6HR PRN #40 tab 10/17/16 5-325] traMADol HCL [Ultram] 50 mg PO Q6HR PRN #100 tablet 10/17/16 Allergies Allergy/AdvReac Type Severity Reaction Status Date / Time latex Allergy Rash/Hives Verified 06/22/19 13:24 Penicillins Allergy Rash/Hives Verified 06/22/19 13:24 shellfish derived [Shellfish] Allergy Rash/Hives Verified 06/22/19 13:24 Review of Systems ROS Statement: Those systems with pertinent positive or pertinent negative responses have been documented in the HPI. ROS Other: All systems not noted in ROS Statement are negative. Past Medical History Past Medical History: Atrial Fibrillation, Dementia, GERD/Reflux, Hyperlipidemia, Hypertension, Sleep Apnea/CPAP/BIPAP, Thyroid Disorder Additional Past Medical History / Comment(s): vascular dementia, transient cerebral ischemia, peripheral arterial occlusive disease, iron deficiency anemia, balance impairment,urinary incontinence History of Any Multi-Drug Resistant Organisms: None Reported Past Surgical History: Appendectomy, Heart Catheterization With Stent, Joint Replacement, Pacemaker Additional Past Surgical History / Comment(s): pacemaker placed in 2011, right knee replacement in 2005, Past Anesthesia/Blood Transfusion Reactions: No Reported Reaction Date of Last Stent Placement:: none Type of Cardiac Device: Permanent Pacemaker Device Placement Date:: 2011 Past Psychological History: Depression Smoking Status: Former smoker Past Alcohol Use History: None Reported Past Drug Use History: None Reported - Past Family History Father Family Medical History: Diabetes Mellitus, Deep Vein Thrombosis (DVT), Myocardial Infarction (HI) Mother Family Medical History: Hypertension General Exam Limitations: altered mental status General appearance: alert Head exam: Present: atraumatic, normocephalic Eye exam: Present: normal appearance, PERRL ENT exam: Present: mucous membranes dry Neck exam: Present: normal inspection. Absent: tenderness, meningismus Respiratory exam: Present: rhonchi, decreased breath sounds. Absent: respiratory distress Cardiovascular Exam: Present: regular rate, normal rhythm GI/Abdominal exam: Present: soft. Absent: distended, tenderness Extremities exam: Present: normal inspection, normal capillary refill. Absent: pedal edema Neurological exam: Present: alert, motor sensory deficit (Patient has generalized weakness, appears to be moving all extremities symmetrically.). Absent: oriented X3 Skin exam: Present: warm, dry, intact, pallor. Absent: cyanosis, diaphoretic Course Vital Signs 06/22/19 06/22/19 13:20 14:45 Temperature 98.1 F Pulse Rate 70 61 Respiratory 18 18 Rate Blood Pressure 128/68 141/69 O2 Sat by Pulse 92 L 100 Oximetry EKG Findings - EKG Comments: EKG Findings:: EKG: Normal sinus rhythm, rate of 63, OR interval 182, QRS duration 80, QTC 343, no ST segment elevation. Medical Decision Making - Medical Decision Making 79-year-old presenting with hypoxia, dyspnea, concern for aspiration. She has been somewhat confused although she has baseline dementia. Workup in the emergency department reveals an elevated white blood cell count at 20, normal electrolytes, normal blood glucose, urinalysis does show urinary tract infection with 70 white cells. Both blood culture and urine cultures are pending. Chest x-rays negative for focal pneumonia, there was concern for possible aspiration. She is given cefepime and metronidazole to cover for possible aspiration in the setting of penicillin ALLERGY. CT performed which is negative for acute intracranial pathology, no intracranial hemorrhage or mass effect. I discussed case with patient's primary care physician Dr. Cardozo, will admit for IV antibiotics, IV fluids. Diagnosis: UTI, leukocytosis, concern for aspiration - Lab Data Result diagrams: 06/22/19 13:24 06/22/19 13:24 Lab Results 06/22/19 06/22/19 06/22/19 Range/Units 13:24 13:24 13:24 WBC 20.1 H (3.8-10.6) k/uL RBC 4.84 (3.80-5.40) m/uL Hgb 15.3 (11.4-16.0) gm/dL Hct 45.8 (34.0-46.0) % MCV 94.7 (80.0-100.0) fL MCH 31.7 (25.0-35.0) pg MCHC 33.4 (31.0-37.0) g/dL RDW 12.9 (11.5-15.5) % Plt Count 179 (150-450) k/uL Neutrophils % 87 % Lymphocytes % 6 % Monocytes % 5 % Eosinophils % 1 % Basophils % 0 % Neutrophils # 17.5 H (1.3-7.7) k/uL Lymphocytes # 1.2 (1.0-4.8) k/uL Monocytes # 1.1 H (0-1.0) k/uL Eosinophils # 0.2 (0-0.7) k/uL Basophils # 0.0 (0-0.2) k/uL PT 14.4 H (9.0-12.0) sec INR 1.4 H (<1.2) APTT 42.8 H (22.0-30.0) sec VBG pH (7.31-7.41) VBG pCO2 (37-51) mmHg VBG HCO3 (24-28) mmol/L Sodium 141 (137-145) mmol/L Potassium 4.0 (3.5-5.1) mmol/L Chloride 106 (98-107) mmol/L Carbon Dioxide 27 (22-30) mmol/L Anion Gap 8 mmol/L BUN 23 H (7-17) mg/dL Creatinine 0.91 (0.52-1.04) mg/dL Est GFR (CKD-EPI)AfAm 69 (>60 ml/min/1.73 sqM) Est GFR (CKD-EPI)NonAf 60 (>60 ml/min/1.73 sqM) Glucose 145 H (74-99) mg/dL Plasma Lactic Acid Romaine (0.7-2.0) mmol/L Calcium 9.4 (8.4-10.2) mg/dL Total Bilirubin 0.9 (0.2-1.3) mg/dL AST 28 (14-36) U/L ALT 23 (4-34) U/L Alkaline Phosphatase 114 (38-126) U/L Total Protein 6.3 (6.3-8.2) g/dL Albumin 3.5 (3.5-5.0) g/dL Urine Color Urine Appearance (Clear) Urine pH (5.0-8.0) Ur Specific [place] (1.001-1.035) Urine Protein (Negative) Urine Glucose (UA) (Negative) Urine Ketones (Negative) Urine Blood (Negative) Urine Nitrite (Negative) Urine Bilirubin (Negative) Urine Urobilinogen (<2.0) mg/dL Ur Leukocyte Esterase (Negative) Urine RBC (0-5) /hpf Urine WBC (0-5) /hpf Urine WBC Clumps (None) /hpf Urine Bacteria (None) /hpf Urine Opiates Screen (NotDetected) Ur Oxycodone Screen (NotDetected) Urine Methadone Screen (NotDetected) Ur Propoxyphene Screen (NotDetected) Ur Barbiturates Screen (NotDetected) U Tricyclic Antidepress (NotDetected) Ur Phencyclidine Scrn (NotDetected) Ur Amphetamines Screen (NotDetected) U Methamphetamines Scrn (NotDetected) U Benzodiazepines Scrn (NotDetected) Urine Cocaine Screen (NotDetected) U Marijuana (THC) Screen (NotDetected) Influenza Type A RNA (Not Detectd) Influenza Type B (PCR) (Not Detectd) 06/22/19 06/22/19 06/22/19 Range/Units 13:24 13:24 13:53 WBC (3.8-10.6) k/uL RBC (3.80-5.40) m/uL Hgb (11.4-16.0) gm/dL Hct (34.0-46.0) % MCV (80.0-100.0) fL MCH (25.0-35.0) pg MCHC (31.0-37.0) g/dL RDW (11.5-15.5) % Plt Count (150-450) k/uL Neutrophils % % Lymphocytes % % Monocytes % % Eosinophils % % Basophils % % Neutrophils # (1.3-7.7) k/uL Lymphocytes # (1.0-4.8) k/uL Monocytes # (0-1.0) k/uL Eosinophils # (0-0.7) k/uL Basophils # (0-0.2) k/uL PT (9.0-12.0) sec INR (<1.2) APTT (22.0-30.0) sec VBG pH 7.38 (7.31-7.41) VBG pCO2 49 (37-51) mmHg VBG HCO3 28 (24-28) mmol/L Sodium (137-145) mmol/L Potassium (3.5-5.1) mmol/L Chloride (98-107) mmol/L Carbon Dioxide (22-30) mmol/L Anion Gap mmol/L BUN (7-17) mg/dL Creatinine (0.52-1.04) mg/dL Est GFR (CKD-EPI)AfAm (>60 ml/min/1.73 sqM) Est GFR (CKD-EPI)NonAf (>60 ml/min/1.73 sqM) Glucose (74-99) mg/dL Plasma Lactic Acid Romaine 1.5 (0.7-2.0) mmol/L Calcium (8.4-10.2) mg/dL Total Bilirubin (0.2-1.3) mg/dL AST (14-36) U/L ALT (4-34) U/L Alkaline Phosphatase (38-126) U/L Total Protein (6.3-8.2) g/dL Albumin (3.5-5.0) g/dL Urine Color Helm Urine Appearance Cloudy H (Clear) Urine pH 5.5 (5.0-8.0) Ur Specific [place] 1.036 H (1.001-1.035) Urine Protein 2+ H (Negative) Urine Glucose (UA) 3+ H (Negative) Urine Ketones Trace H (Negative) Urine Blood Negative (Negative) Urine Nitrite Negative (Negative) Urine Bilirubin 1+ H (Negative) Urine Urobilinogen 4.0 (<2.0) mg/dL Ur Leukocyte Esterase Large H (Negative) Urine RBC 3 (0-5) /hpf Urine WBC 70 H (0-5) /hpf Urine WBC Clumps Many H (None) /hpf Urine Bacteria Many H (None) /hpf Urine Opiates Screen Not Detected (NotDetected) Ur Oxycodone Screen Not Detected (NotDetected) Urine Methadone Screen Not Detected (NotDetected) Ur Propoxyphene Screen Not Detected (NotDetected) Ur Barbiturates Screen Not Detected (NotDetected) U Tricyclic Antidepress Not Detected (NotDetected) Ur Phencyclidine Scrn Not Detected (NotDetected) Ur Amphetamines Screen Not Detected (NotDetected) U Methamphetamines Scrn Detected H (NotDetected) U Benzodiazepines Scrn Not Detected (NotDetected) Urine Cocaine Screen Not Detected (NotDetected) U Marijuana (THC) Screen Not Detected (NotDetected) Influenza Type A RNA (Not Detectd) Influenza Type B (PCR) (Not Detectd) 06/22/19 Range/Units 14:30 WBC (3.8-10.6) k/uL RBC (3.80-5.40) m/uL Hgb (11.4-16.0) gm/dL Hct (34.0-46.0) % MCV (80.0-100.0) fL MCH (25.0-35.0) pg MCHC (31.0-37.0) g/dL RDW (11.5-15.5) % Plt Count (150-450) k/uL Neutrophils % % Lymphocytes % % Monocytes % % Eosinophils % % Basophils % % Neutrophils # (1.3-7.7) k/uL Lymphocytes # (1.0-4.8) k/uL Monocytes # (0-1.0) k/uL Eosinophils # (0-0.7) k/uL Basophils # (0-0.2) k/uL PT (9.0-12.0) sec INR (<1.2) APTT (22.0-30.0) sec VBG pH (7.31-7.41) VBG pCO2 (37-51) mmHg VBG HCO3 (24-28) mmol/L Sodium (137-145) mmol/L Potassium (3.5-5.1) mmol/L Chloride (98-107) mmol/L Carbon Dioxide (22-30) mmol/L Anion Gap mmol/L BUN (7-17) mg/dL Creatinine (0.52-1.04) mg/dL Est GFR (CKD-EPI)AfAm (>60 ml/min/1.73 sqM) Est GFR (CKD-EPI)NonAf (>60 ml/min/1.73 sqM) Glucose (74-99) mg/dL Plasma Lactic Acid Romaine (0.7-2.0) mmol/L Calcium (8.4-10.2) mg/dL Total Bilirubin (0.2-1.3) mg/dL AST (14-36) U/L ALT (4-34) U/L Alkaline Phosphatase (38-126) U/L Total Protein (6.3-8.2) g/dL Albumin (3.5-5.0) g/dL Urine Color Urine Appearance (Clear) Urine pH (5.0-8.0) Ur Specific [place] (1.001-1.035) Urine Protein (Negative) Urine Glucose (UA) (Negative) Urine Ketones (Negative) Urine Blood (Negative) Urine Nitrite (Negative) Urine Bilirubin (Negative) Urine Urobilinogen (<2.0) mg/dL Ur Leukocyte Esterase (Negative) Urine RBC (0-5) /hpf Urine WBC (0-5) /hpf Urine WBC Clumps (None) /hpf Urine Bacteria (None) /hpf Urine Opiates Screen (NotDetected) Ur Oxycodone Screen (NotDetected) Urine Methadone Screen (NotDetected) Ur Propoxyphene Screen (NotDetected) Ur Barbiturates Screen (NotDetected) U Tricyclic Antidepress (NotDetected) Ur Phencyclidine Scrn (NotDetected) Ur Amphetamines Screen (NotDetected) U Methamphetamines Scrn (NotDetected) U Benzodiazepines Scrn (NotDetected) Urine Cocaine Screen (NotDetected) U Marijuana (THC) Screen (NotDetected) Influenza Type A RNA Not Detected (Not Detectd) Influenza Type B (PCR) Not Detected (Not Detectd) Disposition Clinical Impression: Altered mental status, UTI (urinary tract infection) Disposition: ADMITTED IP TO THIS [facility] Condition: Stable Is patient prescribed a controlled substance at d/c from ED?: No Referrals: Jamison Andrade MD [Primary Care Provider] - 1-2 days Decision to Admit Reason: Admit from EC Decision Date: 06/22/19 Decision Time: 15:23
[2019-06-22 13:50] LABS: Basophils % (A) 0 %; Eosinophils # (A) 0.2 k/uL (0-0.7); Eosinophils % (A) 1 %; HCT 45.8 % (34.0-46.0); HGB 15.3 gm/dL (11.4-16.0); Lymphocytes # (A) 1.2 k/uL (1.0-4.8); Lymphocytes % (A) 6 %; MCH 31.7 pg (25.0-35.0); MCHC 33.4 g/dL (31.0-37.0); MCV 94.7 fL (80.0-100.0); Mean Platelet Volume 8.2; Monocytes # (A) 1.1 k/uL (0-1.0); Monocytes % (A) 5 %; Neutrophils # (A) 17.5 k/uL (1.3-7.7); Neutrophils % (A) 87 %; Platelet Count 179 k/uL (150-450); RBC 4.84 m/uL (3.80-5.40); RDW 12.9 % (11.5-15.5); WBC 20.1 k/uL (3.8-10.6)
[2019-06-22 14:02] LABS: INR 1.4 (<1.2); Partial Thromboplastin Time 42.8 sec (22.0-30.0); Prothrombin Time 14.4 sec (9.0-12.0)
[2019-06-22 14:09] LABS: Albumin 3.5 g/dL (3.5-5.0); Calcium 9.4 mg/dL (8.4-10.2); Total Bilirubin 0.9 mg/dL (0.2-1.3); Total Protein 6.3 g/dL (6.3-8.2)
[2019-06-22 14:18] LABS: VBG PH 7.38 (7.31-7.41)
[2019-06-22 14:22] LABS: Appearance,Urine Cloudy (Clear); Bacteria,Urine Many /hpf; Bilirubin,Urine 1+ (Negative); Blood,Urine Negative (Negative); Color,Urine Orange; Glucose,Urine (UA) 3+ (Negative); Ketones,Urine Trace (Negative); Leukocyte Esterase,Urine Large (Negative); Nitrite,Urine Negative (Negative); PH, Urine 5.5 (5.0-8.0); Protein,Urine 2+ (Negative); RBC,Urine 3 /hpf (0-5); Specific Gravity,Urine 1.036 (1.001-1.035); WBC,Urine 70 /hpf (0-5)
[2019-06-22 14:30] LABS: Amphetamine Screen,Urine Not Detected (NotDetected); Barbiturate Screen,Urine Not Detected (NotDetected); Benzodiazepines Screen,Urine Not Detected (NotDetected); Cocaine Screen,Urine Not Detected (NotDetected); Methadone Screen, Urine Not Detected (NotDetected); Opiate Screen,Urine Not Detected (NotDetected); Oxycodone Screen, Urine Not Detected (NotDetected); Phencyclidine Screen,Urine Not Detected (NotDetected); Tricyclic Antidepressant,Urine Not Detected (NotDetected); Urn Cannabinoid Scrn Not Detected (NotDetected)
--- NOTE | 2019-06-22 14:55 | CT ---
EXAMINATION TYPE: CT brain wo con DATE OF EXAM: 06/22/2019 COMPARISON: 04/09/2012 HISTORY: Altered mental status CT DLP: 1095.4 mGycm Automated exposure control for dose reduction was used. There is cerebral cortical atrophy. There is patchy hypodensity in the periventricular white matter. There is enlargement of the ventricles. There is no mass effect nor midline shift. There is no sign o f intracranial hemorrhage. The calvarium is intact. IMPRESSION: Cerebral atrophy and hydrocephalus that has progressed compared to old exam. Chronic small vessel isc hemia. No acute intracranial abnormality.
--- NOTE | 2019-06-22 14:57 | XR ---
EXAMINATION TYPE: XR chest 2V DATE OF EXAM: 06/22/2019 COMPARISON: 10/12/2016 HISTORY: Weakness. Fall. TECHNIQUE: 2 views FINDINGS: There is no heart failure nor confluent pneumonic infiltrate. Costophrenic angles are clear . There is a left axillary pacemaker. Thoracic aorta is atheromatous. Bony thorax is intact. IMPRESSION: No active cardiopulmonary disease. There is probably some cardiomegaly. No adverse change .
[2019-06-22] MEDS ORDERED: CEFEPIME 2 GM in SODIUM CHLORIDE 0.9% 100 ML IVPB STA (15:20)
[2019-06-22] MEDS ORDERED: AZITHROMYCIN 500 MG in SODIUM CHLORIDE 0.9% 250 ML IVPB STA (15:21)
[2019-06-22] MEDS ORDERED: metroNIDAZOLE-NS PMX 500 MG in SALINE 1 100ML.BAG IVPB STA (15:28)
[2019-06-22] MEDS ORDERED: NALOXONE 0.4 MG/ML 1 ML VIAL IV PRN (15:30)
[2019-06-22] MEDS ORDERED: ACETAMINOPHEN TAB 325 MG TAB PO PRN (15:30)
[2019-06-22] MEDS: SODIUM CHLORIDE 0.9% 1,000 ML IV SCH (16:27)
[2019-06-22] MEDS ORDERED: ACETAMINOPHEN TAB 500 MG TAB PO PRN (17:48)
[2019-06-22] MEDS ORDERED: MAGNESIUM HYDROXIDE 2,400 MG/10 ML CUP PO PRN (17:48)
--- NOTE | 2019-06-22 17:50 | P.HPIM ---
History of Present Illness H&P Date: 06/22/19 Chief Complaint: Weakness, lethargic, decreased mentation 79-year-old female who currently resides are not [place] under the service of Dr. Andrade for long-term residency for the past 3 years, after a hip fracture. He has underlying history of paradoxical atrial fibrillation, advanced vascular dementia hyperlipidemia, hypothyroidism, obstructive sleep apnea, pacemaker [place], admitted to the emergency room after a call placed regarding her illness. Patient was noted to be diaphoretic, was not eating well, there is a concern regarding aspiration, she also has fever and chills, the facility has fever and chills coming around, however they were all tested to be influenza negative, and requested the nursing staff to send the patient to the hospital for emergent evaluation, blood sugars were requested to be checked, prior to transfer. O2, supplementation while on transport EMS. In the emergency room blood pressure was 128/68, temperature of 98 1, 92% on room air, heart rate 70s, WBC count of 20,000, INR of 1.4, BUN 23 creatinine of 0.91 urinalysis shows very cloudy urine, 3+ glucose, mild ketones, WBC clumps every 70, specific gravity of 1.036 glucose 145 influenza test is negative, urine drug screen was positive for methamphetamine negative for opiates Review of Systems Constitutional: Reports as per HPI, Reports anorexia, Reports chills, Reports poor appetite, Reports weakness Ears, nose, mouth and throat: Reports as per HPI, Denies ant. neck pain, Denies bleeding gums, Denies dental pain, Denies dysphagia, Denies epistaxis, Denies headache, Denies hoarseness, Denies mouth pain, Denies nasal congestion, Denies nasal discharge, Denies neck fullness/pressure, Denies neck lump, Denies nose pain, Denies odynophagia, Denies post-nasal drip, Denies sinus pain, Denies sinu s pressure, Denies swelling in mouth, Denies swelling in throat, Denies sore throat, Denies vertigo, Denies voice changes Respiratory: Reports as per HPI, Reports cough, Reports pain on inspiration Gastrointestinal: Reports as per HPI, Denies abdominal pain, Denies belching, Denies bloating, Denies BRBPR, Denies change in bowel habits, Denies coffee ground emesis, Denies constipation, Denies diarrhea, Denies dyspepsia, Denies early satiety, Denies excessive gas, Denies heartburn, Denies hematemesis, Denies hematochezia, Denies indigestion, Denies jaundice, Denies lactose intolerance, Denies loss of appetite, Denies melena, Denies nausea, Denies vomiting Genitourinary: Reports as per HPI, Reports mixed incontinence Menstruation: Reports as per HPI, Reports postmenopausal Musculoskeletal: Reports as per HPI, Reports limitation of motion, Reports muscle weakness Integumentary: Reports as per HPI, Denies acne, Denies boils, Denies brittle n ails, Denies change in hair/nails, Denies color changes, Denies darkening of skin, Denies depigmentation, Denies dryness, Denies foot/leg ulcers, Denies growths, Denies hirsutism, Denies lesions, Denies onychomycosis, Denies pruritus, Denies rash, Denies sores, Denies striae, Denies unusual bruising, Denies wounds Neurological: Reports as per HPI, Denies aphasia, Denies ataxia, Denies balance difficulties, Denies burning pain, Denies change in mentation, Denies change in smell/taste, Denies change in speech, Denies confusion, Denies convulsions, Denies double vision, Denies gait dysfunction, Denies head injury, Denies headaches, Denies hearing difficulties, Denies lack of coordination, Denies loss of vision, Denies memory loss, Denies migraines, Denies motor disturbance, Denies numbness, Denies paralysis, Denies paresthesias, Denies seizures, Denies sensory deficit, Denies spasticity, Denies syncope, Denies tic, Denies tingling, Denies transient paralysis, Denies tremors, Denies vertigo, Denies weakness, Denies visual changes Psychiatric: Reports as per HPI Endocrine: Reports as per HPI, Denies cold intolerance, Denies deepening of the voice, Denies excessive sweating, Denies excessive thirst, Denies fatigue, Denies flushing, Denies heat intolerance, Denies high blood sugars, Denies increase in ring/shoe/hat size, Denies low blood sugars, Denies nocturia, Denies palpitations, Denies polydipsia, Denies polyphagia, Denies polyuria, Denies proptosis, Denies recent glucocorticoid use, Denies thyroid mass, Denies weight change Hematologic/Lymphatic: Reports as per HPI Allergic/Immunologic: Reports as per HPI, Denies allergic rhinitis, Denies anaphylaxis, Denies angioedema, Denies gluten intolerance, Denies persistent infections, Denies seasonal allergies, Denies urticaria, Denies wheezing Past Medical History Past Medical History: Atrial Fibrillation, Dementia, GERD/Reflux, Hyperlipidemia, Hypertension, Sleep Apnea/CPAP/BIPAP, Thyroid Disorder Additional Past Medical History / Comment(s): vascular dementia, transient cerebral ischemia, peripheral arterial occlusive disease, iron deficiency anemia, balance impairment,urinary incontinence History of Any Multi-Drug Resistant Organisms: None Reported Past Surgical History: Appendectomy, Heart Catheterization With Stent, Joint Replacement, Pacemaker Additional Past Surgical History / Comment(s): pacemaker placed in 2011, right knee replacement in 2005, Past Anesthesia/Blood Transfusion Reactions: No Reported Reaction Date of Last Stent Placement:: none Type of Cardiac Device: Permanent Pacemaker Device Placement Date:: 2011 Past Psychological History: Depression Smoking Status: Former smoker Past Alcohol Use History: None Reported Past Drug Use History: None Reported - Past Family History Father Family Medical History: Diabetes Mellitus, Deep Vein Thrombosis (DVT), Myocardial Infarction (ME) Mother Family Medical History: Hypertension Medications and Allergies Home Medications Medication Instructions Recorded Confirmed Type Acetaminophen Tab [Tylenol] 1,000 mg PO Q4H PRN 10/12/16 06/22/19 History Amiodarone HCl [Pacerone] 100 mg PO DAILY@0800 10/12/16 06/22/19 History Aspirin 81 mg PO DAILY@0800 10/12/16 06/22/19 History Atorvastatin [Lipitor] 20 mg PO HS@2100 10/12/16 06/22/19 History Bisacodyl [Dulcolax] 10 mg RECTAL DAILY PRN 10/12/16 06/22/19 History Dabigatran [Pradaxa] 150 mg PO BID@0800,1700 10/12/16 06/22/19 History Escitalopram Oxalate [Lexapro] 10 mg PO DAILY@0800 10/12/16 06/22/19 History Ferrous Sulfate [Iron (65 MG 325 mg PO BID@0800,1700 10/12/16 06/22/19 History Elemental)] Furosemide [Lasix] 40 mg PO MOWEFR@0800 10/12/16 06/22/19 History Levothyroxine Sodium [Synthroid] 75 mcg PO DAILY@0800 10/12/16 06/22/19 History Multivitamins, Thera [Multivitamin 1 tab PO DAILY@0800 10/12/16 06/22/19 History (formulary)] Na Phos,M-B/Na Phos,Di-Ba [Fleet 133 ml RECTAL DAILY PRN 10/12/16 06/22/19 History Adult] Omeprazole 20 mg PO DAILY@0600 10/12/16 06/22/19 History Potassium Chloride ER [K-Dur 20] 20 meq PO MOWEFR@0800 10/12/16 06/22/19 History Verapamil HCl [Verapamil ER] 120 mg PO DAILY@0800 10/12/16 06/22/19 History traZODone HCL 150 mg PO HS@2100 10/12/16 06/22/19 History Caldescene Baby Powder 1 applic TOPICAL TID 06/22/19 06/22/19 History Cholecalciferol (Vitamin D3) 2,000 unit PO DAILY@0800 06/22/19 06/22/19 History [Vitamin D3] Loperamide HCl [Loperamide] 2 mg PO DAILY PRN 06/22/19 06/22/19 History Mag Hydrox/Al Hydrox/Simeth 15 ml PO Q6H PRN 06/22/19 06/22/19 History [Maalox] Magnesium Hydroxide [Milk of 7,200 mg PO DAILY PRN 06/22/19 06/22/19 History Magnesia Concentrate] Sennosides/Docusate Sodium [Daysi 1 tab PO DAILY@0800 06/22/19 06/22/19 History Colace] guaiFENesin [guaiFENesin Oral 200 mg PO Q4H PRN 06/22/19 06/22/19 History Solution] sitaGLIPtin [Januvia] 50 mg PO DAILY@0800 06/22/19 06/22/19 History Allergies Allergy/AdvReac Type Severity Reaction Status Date / Time latex Allergy Rash/Hives Verified 06/22/19 15:52 Penicillins Allergy Rash/Hives Verified 06/22/19 15:52 shellfish derived [Shellfish] Allergy Rash/Hives Verified 06/22/19 15:52 Physical Exam Vitals: Vital Signs Temp Pulse Resp BP Pulse Ox 06/22/19 16:30 102 H 18 145/75 99 06/22/19 14:45 61 18 141/69 100 06/22/19 13:20 98.1 F 70 18 128/68 92 L Intake and Output 06/22/19 06/22/19 06/22/19 06:59 14:59 22:59 Other: Weight 79.379 kg - Constitutional General appearance: cooperative, no acute distress - EENT Eyes: EOMI, PERRLA, dentition normal, normal appearance ENT: NA/AT, normal oropharynx - Neck Neck: normal ROM - Respiratory Respiratory: bilateral: CTA, negative: diminished, dullness, rales, rhonchi - Cardiovascular Rhythm: regular Heart sounds: normal: S1, S2 - Gastrointestinal General gastrointestinal: normal bowel sounds, soft - Integumentary Integumentary: decreased turgor, normal - Neurologic Neurologic: CNII-XII intact - Musculoskeletal Musculoskeletal: gait normal, strength equal bilaterally - Psychiatric Psychiatric: A&O x's 3, appropriate affect, intact judgment & insight Results CBC & Chem 7: 06/22/19 13:24 06/22/19 13:24 Labs: Abnormal Lab Results - Last 24 Hours (Table) 06/22/19 06/22/19 06/22/19 Range/Units 13:24 13:24 13:24 WBC 20.1 H (3.8-10.6) k/uL Neutrophils # 17.5 H (1.3-7.7) k/uL Monocytes # 1.1 H (0-1.0) k/uL PT 14.4 H (9.0-12.0) sec INR 1.4 H (<1.2) APTT 42.8 H (22.0-30.0) sec BUN 23 H (7-17) mg/dL Glucose 145 H (74-99) mg/dL Urine Appearance (Clear) Ur Specific [place] (1.001-1.035) Urine Protein (Negative) Urine Glucose (UA) (Negative) Urine Ketones (Negative) Urine Bilirubin (Negative) Ur Leukocyte Esterase (Negative) Urine WBC (0-5) /hpf Urine WBC Clumps (None) /hpf Urine Bacteria (None) /hpf U Methamphetamines Scrn (NotDetected) 06/22/19 Range/Units 13:53 WBC (3.8-10.6) k/uL Neutrophils # (1.3-7.7) k/uL Monocytes # (0-1.0) k/uL PT (9.0-12.0) sec INR (<1.2) APTT (22.0-30.0) sec BUN (7-17) mg/dL Glucose (74-99) mg/dL Urine Appearance Cloudy H (Clear) Ur Specific [place] 1.036 H (1.001-1.035) Urine Protein 2+ H (Negative) Urine Glucose (UA) 3+ H (Negative) Urine Ketones Trace H (Negative) Urine Bilirubin 1+ H (Negative) Ur Leukocyte Esterase Large H (Negative) Urine WBC 70 H (0-5) /hpf Urine WBC Clumps Many H (None) /hpf Urine Bacteria Many H (None) /hpf U Methamphetamines Scrn Detected H (NotDetected) Laboratory Results WBC 20.1 k/uL (3.8-10.6) H 06/22/19 13:24 RBC 4.84 m/uL (3.80-5.40) 06/22/19 13:24 Hgb 15.3 gm/dL (11.4-16.0) 06/22/19 13:24 Hct 45.8 % (34.0-46.0) 06/22/19 13:24 MCV 94.7 fL (80.0-100.0) 06/22/19 13:24 MCH 31.7 pg (25.0-35.0) 06/22/19 13:24 MCHC 33.4 g/dL (31.0-37.0) 06/22/19 13:24 RDW 12.9 % (11.5-15.5) 06/22/19 13:24 Plt Count 179 k/uL (150-450) 06/22/19 13:24 Neutrophils % 87 % 06/22/19 13:24 Lymphocytes % 6 % 06/22/19 13:24 Monocytes % 5 % 06/22/19 13:24 Eosinophils % 1 % 06/22/19 13:24 Basophils % 0 % 06/22/19 13:24 Neutrophils # 17.5 k/uL (1.3-7.7) H 06/22/19 13:24 Lymphocytes # 1.2 k/uL (1.0-4.8) 06/22/19 13:24 Monocytes # 1.1 k/uL (0-1.0) H 06/22/19 13:24 Eosinophils # 0.2 k/uL (0-0.7) 06/22/19 13:24 Basophils # 0.0 k/uL (0-0.2) 06/22/19 13:24 PT 14.4 sec (9.0-12.0) H 06/22/19 13:24 INR 1.4 (<1.2) H 06/22/19 13:24 APTT 42.8 sec (22.0-30.0) H 06/22/19 13:24 VBG pH 7.38 (7.31-7.41) 06/22/19 13:24 VBG pCO2 49 mmHg (37-51) 06/22/19 13:24 VBG HCO3 28 mmol/L (24-28) 06/22/19 13:24 Sodium 141 mmol/L (137-145) 06/22/19 13:24 Potassium 4.0 mmol/L (3.5-5.1) 06/22/19 13:24 Chloride 106 mmol/L (98-107) 06/22/19 13:24 Carbon Dioxide 27 mmol/L (22-30) 06/22/19 13:24 Anion Gap 8 mmol/L 06/22/19 13:24 BUN 23 mg/dL (7-17) H 06/22/19 13:24 Creatinine 0.91 mg/dL (0.52-1.04) 06/22/19 13:24 Est GFR (CKD-EPI)AfAm 69 (>60 ml/min/1.73 sqM) 06/22/19 13:24 Est GFR (CKD-EPI)NonAf 60 (>60 ml/min/1.73 sqM) 06/22/19 13:24 Glucose 145 mg/dL (74-99) H 06/22/19 13:24 Plasma Lactic Acid [place] 1.5 mmol/L (0.7-2.0) 06/22/19 13:24 Calcium 9.4 mg/dL (8.4-10.2) 06/22/19 13:24 Total Bilirubin 0.9 mg/dL (0.2-1.3) 06/22/19 13:24 AST 28 U/L (14-36) 06/22/19 13:24 ALT 23 U/L (4-34) 06/22/19 13:24 Alkaline Phosphatase 114 U/L (38-126) 06/22/19 13:24 Total Protein 6.3 g/dL (6.3-8.2) 06/22/19 13:24 Albumin 3.5 g/dL (3.5-5.0) 06/22/19 13:24 Urine Color [place] 06/22/19 13:53 Urine Appearance Cloudy (Clear) H 06/22/19 13:53 Urine pH 5.5 (5.0-8.0) 06/22/19 13:53 Ur Specific [place] 1.036 (1.001-1.035) H 06/22/19 13:53 Urine Protein 2+ (Negative) H 06/22/19 13:53 Urine Glucose (UA) 3+ (Negative) H 06/22/19 13:53 Urine Ketones Trace (Negative) H 06/22/19 13:53 Urine Blood Negative (Negative) 06/22/19 13:53 Urine Nitrite Negative (Negative) 06/22/19 13:53 Urine Bilirubin 1+ (Negative) H 06/22/19 13:53 Urine Urobilinogen 4.0 mg/dL (<2.0) 06/22/19 13:53 Ur Leukocyte Esterase Large (Negative) H 06/22/19 13:53 Urine RBC 3 /hpf (0-5) 06/22/19 13:53 Urine WBC 70 /hpf (0-5) H 06/22/19 13:53 Urine WBC Clumps Many /hpf (None) H 06/22/19 13:53 Urine Bacteria Many /hpf (None) H 06/22/19 13:53 Urine Opiates Screen Not Detected (NotDetected) 06/22/19 13:53 Ur Oxycodone Screen Not Detected (NotDetected) 06/22/19 13:53 Urine Methadone Screen Not Detected (NotDetected) 06/22/19 13:53 Ur Propoxyphene Screen Not Detected (NotDetected) 06/22/19 13:53 Ur Barbiturates Screen Not Detected (NotDetected) 06/22/19 13:53 U Tricyclic Antidepress Not Detected (NotDetected) 06/22/19 13:53 Ur Phencyclidine Scrn Not Detected (NotDetected) 06/22/19 13:53 Ur Amphetamines Screen Not Detected (NotDetected) 06/22/19 13:53 U Methamphetamines Scrn Detected (NotDetected) H 06/22/19 13:53 U Benzodiazepines Scrn Not Detected (NotDetected) 06/22/19 13:53 Urine Cocaine Screen Not Detected (NotDetected) 06/22/19 13:53 U Marijuana (THC) Screen Not Detected (NotDetected) 06/22/19 13:53 Influenza Type A RNA Not Detected (Not Detectd) 06/22/19 14:30 Influenza Type B (PCR) Not Detected (Not Detectd) 06/22/19 14:30 Thrombosis Risk Factor Assmnt - DVT/VTE Prophylaxis DVT/VTE Prophylaxis: Pharmacologic Prophylaxis ordered, Low risk, early ambulation encouraged - Choose All That Apply Any of the Below Risk Factors Present?: Yes Each Risk Factor Represents 2 Points: Patient confined to bed Each Risk Factor Represents 3 Points: Age 75 years or older Thrombosis Risk Factor Assessment Total Risk Factor Score: 5 Thrombosis Risk Factor Assessment Level: High Risk Assessment and Plan Plan: 1. Sepsis with SIRS, pyelonephritis suspected, significant pyuria noted, and leukemoid reaction noted on chemistries, patient was started on IV Rocephin, blood cultures urine cultures has been sent, renal ultrasound to evaluate for hydronephrosis stones as well as perinephric abscess, IV hydration, has lactic acidosis and ketonuria 2. Metabolic encephalopathy, possible aspiration pneumonitis, chest x-ray shows left pacemaker, no adverse change, IV cefepime and Flagyl might need modified barium swallow eval however this an acute event, with her current illness, bedside swallowing screen for now 3. Dehydration, with lactic acidosis and ketonuria, IV hydration, monitor labs 3 CAD: Post PCI and stent placement asymptomatic 3. Diabetes mellitus type 2, on Januvia 50 mg daily 3 A. fib with controlled rate: Pulse rates under control currently patient is doing well on verapamil andamiodarone 100 mg daily and anticoagulation has been on pradaxa . 4 post pacemaker: Has been watch by cardiology regular basis. 5 advance vascular dementia: Patient has been on Lexapro and Zyprexa along with trazodone at nighttime. 6 hyperlipidemia: Has been on Lipitor 20 mg a day. 7 diastolic compensated congestive heart failure: Mostly systolic dysfunction chronic has been on Lasix fluid restriction and verapamil. 8 hypothyroidism: Continue levothyroxine 75 g daily. 9 chronic anemia: Iron deficient patient has been doing well on iron supplement oral 10. Hyperlipidemia, on Lipitor 20 mg at bedtime. GI prophylaxis: Patient will be on omeprazole 20 mg daily. DVT prophylaxis: Patient was on pradaxa long-term anticoagulation 12.CODE STATUS: DO NOT RESUSCITATE.
[2019-06-22] MEDS: ATORVASTATIN 20 MG TAB PO SCH (21:59)
[2019-06-22] MEDS: traZODone HCL 50 MG TAB PO SCH (21:59)
[2019-06-23] MEDS: LEVOTHYROXINE 75 MCG TAB PO SCH (06:07)
[2019-06-23] MEDS: SODIUM CHLORIDE 0.9% 1,000 ML IV SCH ×2 (06:08→16:21)
[2019-06-23 09:01] LABS: Basophils % (A) 0 %; Eosinophils % (A) 0 %; HCT 41.2 % (34.0-46.0); HGB 13.5 gm/dL (11.4-16.0); Lymphocytes # (A) 0.9 k/uL (1.0-4.8); Lymphocytes % (A) 6 %; MCH 32.2 pg (25.0-35.0); MCHC 32.7 g/dL (31.0-37.0); MCV 98.6 fL (80.0-100.0); Mean Platelet Volume 8.5; Monocytes # (A) 0.8 k/uL (0-1.0); Monocytes % (A) 5 %; Neutrophils # (A) 14.6 k/uL (1.3-7.7); Neutrophils % (A) 88 %; Platelet Count 167 k/uL (150-450); RBC 4.18 m/uL (3.80-5.40); RDW 12.9 % (11.5-15.5); WBC 16.7 k/uL (3.8-10.6)
[2019-06-23 09:15] LABS: ALT 17 U/L (4-34); AST 20 U/L (14-36); African American GFR (CKD) >90 (>60 ml/min/1.73 sqM); Albumin 2.9 g/dL (3.5-5.0); Alkaline Phosphatase 114 U/L (38-126); Anion Gap 8 mmol/L; Blood Urea Nitrogen 20 mg/dL (7-17); Calcium 8.9 mg/dL (8.4-10.2); Carbon Dioxide 24 mmol/L (22-30); Chloride 110 mmol/L (98-107); Glucose 135 mg/dL (74-99); Non-African American GFR(CKD) 78 (>60 ml/min/1.73 sqM); Potassium 3.8 mmol/L (3.5-5.1); Sodium 142 mmol/L (137-145); Total Bilirubin 0.8 mg/dL (0.2-1.3); Total Protein 5.5 g/dL (6.3-8.2)
[2019-06-23] MEDS: SENNOSIDES-DOCUSATE SODIUM 1 EACH TAB PO SCH (09:59)
[2019-06-23] MEDS: ASPIRIN 81 MG PO SCH (09:59)
[2019-06-23] MEDS: MULTIVITAMINS, THERA 1 EACH TAB PO SCH (09:59)
[2019-06-23] MEDS: PANTOPRAZOLE 40 MG TABLET PO SCH (09:59)
[2019-06-23] MEDS: ESCITALOPRAM 10 MG TAB PO SCH (10:01)
[2019-06-23] MEDS: LINAGLIPTIN 5 MG TABLET PO SCH (10:01)
[2019-06-23] MEDS: AMIODARONE 100 MG TAB PO SCH (10:01)
[2019-06-23] MEDS: VERAPAMIL SR 120 MG TABLET.ER PO SCH (10:02)
[2019-06-23] MEDS: DABIGATRAN 150 MG CAP PO SCH ×2 (10:02→17:48)
[2019-06-23 11:59] LABS: Glucose,Whole Blood 172 mg/dL (75-99)
[2019-06-23] MEDS ORDERED: IOPAMIDOL CONTRAST (ORAL USE) VIAL PO PRN (14:53)
[2019-06-23] MEDS ORDERED: VANCOMYCIN 1,250 MG in SODIUM CHLORIDE 0.9% 250 ML IVPB SCH (15:15)
[2019-06-23] MEDS ORDERED: MAG HYDROX/AL HYDROX/SIMETH 30 ML CUP PO PRN (15:25)
[2019-06-23] MEDS ORDERED: metroNIDAZOLE-NS PMX 500 MG in SALINE 1 100ML.BAG IVPB SCH (16:00)
[2019-06-23] MEDS ORDERED: VANCOMYCIN 1,500 MG in SODIUM CHLORIDE 0.9% 250 ML IVPB ONE (16:00)
[2019-06-23 16:13] LABS: Appearance,Urine Clear (Clear); Bilirubin,Urine Negative (Negative); Blood,Urine Negative (Negative); Color,Urine Yellow; Glucose,Urine (UA) 3+ (Negative); Hyaline Casts,Urine 1 /lpf (0-2); Ketones,Urine Negative (Negative); Leukocyte Esterase,Urine Small (Negative); Mucus,Urine Rare /hpf; Nitrite,Urine Negative (Negative); Protein,Urine 2+ (Negative); RBC,Urine <1 /hpf (0-5); Specific Gravity,Urine 1.031 (1.001-1.035); Squamous Epithelial Cell,Urine <1 /hpf (0-4); WBC,Urine 11 /hpf (0-5)
[2019-06-23] MEDS: CEFEPIME 2 GM in SODIUM CHLORIDE 0.9% 100 ML IVPB SCH ×2 (16:20→23:17)
[2019-06-23 16:31] LABS: Amphetamine Screen,Urine Not Detected (NotDetected); Barbiturate Screen,Urine Not Detected (NotDetected); Benzodiazepines Screen,Urine Not Detected (NotDetected); Cocaine Screen,Urine Not Detected (NotDetected); Methadone Screen, Urine Not Detected (NotDetected); Opiate Screen,Urine Not Detected (NotDetected); Oxycodone Screen, Urine Not Detected (NotDetected); Phencyclidine Screen,Urine Not Detected (NotDetected); Tricyclic Antidepressant,Urine Not Detected (NotDetected); Urn Cannabinoid Scrn Not Detected (NotDetected)
[2019-06-23 16:44] LABS: Glucose,Whole Blood 128 mg/dL (75-99)
--- NOTE | 2019-06-23 17:25 | XR ---
EXAMINATION TYPE: XR chest 1V DATE OF EXAM: 06/23/2019 COMPARISON: Yesterday HISTORY: Altered mental status TECHNIQUE: FINDINGS: Heart is enlarged. There is pulmonary vascular congestion. There is blunting of the costoph renic angles with mild infiltrates at the lung bases. There is a left axillary pacemaker. IMPRESSION: There is congestive heart failure with pleural fluid and basilar pulmonary infiltrates th at is new compared to yesterday.
--- NOTE | 2019-06-23 18:51 | P.PN ---
Subjective Progress Note Date: 06/23/19 79-year-old female who currently resides at [facility] under the service of Dr. Andrade for long-term residency for the past 3 years, after a hip fracture currently bedbound. He has underlying history of paradoxical atrial fibrillation, advanced vascular dementia hyperlipidemia, hypothyroidism, o bstructive sleep apnea, pacemaker [place], admitted to the emergency room after a call placed regarding her illness. Patient was noted to be diaphoretic, was not eating well, there is a concern regarding aspiration as patient had an episode of vomiting, she also has fever and chills. In the emergency room blood pressure was 128/68, temperature of 98 1, 92% on room air, heart rate 70s, WBC count of 20,000, INR of 1.4, BUN 23 creatinine of 0.91 urinalysis shows very cloudy urine, 3+ glucose, mild ketones, WBC clumps every 70, specific gravity of 1.036 glucose 145 influenza test is negative, urine drug screen was positive for methamphetamine negative for opiates 06/23 on evaluation today patient is a poor historian and unable to comprehend or carry on a conversation which is patient's baseline. I spoke with patient's daughter Eleanor Arnold who is patient's power of family law attorney, family Friend sitting at bedside who sees patient every single day and patient's other daughter Beba Moise in detail and got an understanding that patient is minimally interactive at baseline. She is able to follow simple commands and is currently requiring supervision in eating and dressing up. Patient's friend stated that she did not see her yesterday when this event happened. She stated patient has been at her baseline until yesterday when she was more confused, weak staring blankly at the bonds. Patient is unable to provide any history but appears to be calm. White count assessed today suggest that patient has been afebrile since admission pulse is 69 blood pressure 100/57 rest. Evaluation of blood work patient's WBC has improved to 16.7 BUN is slightly elevated at 20 blood sugar ranges from 128-172 . Urine drug screen from yesterday is positive for methamphetamine which appears unlikely to be true as patient has a snf resident and does not have any stimulant medication on review of her medication. Repeat urine drug screen was done which was negative. Repeat UA is suggestive of 11 WBC small leukocyte esterase consistent with UTI. Chest x-ray was reviewed patient does have infiltrate in the basilar right lower lobe. Pro- calcitonin will be obtained. Repeat chest x-ray will be obtained today that suggestive bibasilar pulmonary infiltrate and mild pulmonary venous congestion. IV fluids decreased to 50 mL per hour. Barium swallow will be obtained as patient did not do well with the applesauce with her medications.Speech Therapy consulted. Patient's daughter request to do minimal for the patient and avoid CAT scan of the abdomen for now. She would like her mother to be comfortable and according to her daughter, CAT scan would not make her comfortable. Patient's daughter and family was explained that we are only doing imagng that is necessary for patient's care . We will hold off on CT abdomen as patient's symptoms are improving. If there is no improvement in symptoms in the next 24- [address] abdomen and pelvis with and without contrast will be ordered. Also noted on CT brain is progressive hydrocephalus which needs evaluation with neurology consultation as patient has progressive dementia, incontinence and lower extremity weakness which is also seen and normal pressure hydrocephalus. Review of system Could not be obtained due to patient's mental mental status Objective - Vital Signs Vital signs: Vital Signs Temp 98.7 F 06/23/19 11:54 Pulse 69 06/23/19 11:54 Resp 18 06/23/19 11:54 BP 100/57 06/23/19 11:54 Pulse Ox 96 06/23/19 11:54 Intake & Output 06/22/19 06/23/19 06/23/19 18:59 06:59 18:59 Intake Total 1000 600 Balance 1000 600 Weight 79.379 kg 79.379 kg Intake: Intake, IV Titration 1000 600 Amount Sodium Chloride 0.9% 1, 900 600 000 ml @ 75 mls/hr IV . [id number] YANCY Rx#:[id number] metroNIDAZOLE-NS PMX 500 100 mg In Saline 1 100ml.bag @ 100 mls/hr IVPB ONCE STA Rx#:[id number] Other: Voiding Method Diaper Diaper # Voids 1 - Exam - Constitutional General appearance: cooperative, no acute distress appears very calm, obese - EENT Eyes: anicteric sclerae, PERRLA, normal appearance ENT: hearing grossly normal - Neck Neck: no lymphadenopathy, normal ROM, no other, no rigidity, no stridor, no thyromegaly - Respiratory Respiratory: bilateral: CTA, diminished at bases mild basilar crackles noted - Cardiovascular Rhythm: regular Heart sounds: normal: S1, S2 Abnormal Heart Sounds: no systolic murmur, no diastolic murmur, no rub - Gastrointestinal General gastrointestinal: normal bowel sounds, soft nontender - Integumentary Integumentary: no rash - Neurologic Neurologic: Difficult to assess due to patient's baseline, patient is able to move upper extremities 5/5 no movement noted in the bilateral lower extremity hyporeflexic - Musculoskeletal Musculoskeletal: gait not assessed wheelchair-bound, 0/5 bilateral lower extremity weakness sensation intact, patient is incontinent - Psychiatric Psychiatric: A&O x's 1, appropriate affect - Labs CBC & Chem 7: 06/23/19 07:54 06/23/19 07:54 Labs: Abnormal Lab Results - Last 24 Hours (Table) 06/23/19 06/23/19 06/23/19 Range/Units 07:54 07:54 11:57 WBC 16.7 H (3.8-10.6) k/uL Neutrophils # 14.6 H (1.3-7.7) k/uL Lymphocytes # 0.9 L (1.0-4.8) k/uL Chloride 110 H (98-107) mmol/L BUN 20 H (7-17) mg/dL Glucose 135 H (74-99) mg/dL POC Glucose (mg/dL) 172 H (75-99) mg/dL Total Protein 5.5 L (6.3-8.2) g/dL Albumin 2.9 L (3.5-5.0) g/dL Microbiology - Last 24 Hours (Table) 06/22/19 13:53 Urine Culture - Preliminary Urine,Catheterized Assessment and Plan Plan: 1. Sepsis with SIRS, pyelonephritis suspected with possible aspiration pneumonia, significant pyuria noted, and bacteuria noted on chemistries, on cefepime and flagyl, blood cultures urine cultures has been sent,CT scan held for next 48 hr continue , IV hydration. Pro-calcitonin ordered. Barium swallow ordered. Chest x-ray just showed right basilar infiltrate with possible pulmonary venous congestion. ProBNP ordered IV fluids decreased to 50 mL/h antibiotics will be descalated as more information is obtained 2. Metabolic encephalopathy, possible secondary to sepsis, chest x-ray shows left pacemaker, no adverse change, on IV cefepime and Flagyl might need modified barium swallow eval however this an acute event, with her current illness, bedside swallowing screen for now 3. Dehydration, with lactic acidosis and ketonuria, IV hydration, monitor labs 3 CAD: Post PCI and stent placement asymptomatic 3. Diabetes mellitus type 2, on Januvia 50 mg daily 3 A. fib with controlled rate: Pulse rates under control currently patient is doing well on verapamil andamiodarone 100 mg daily and anticoagulation has been on pradaxa . 4 post pacemaker: Has been watch by cardiology regular basis. 5 advance vascular dementia: Patient has been on Lexapro and Zyprexa along with trazodone at nighttime. 6 hyperlipidemia: Has been on Lipitor 20 mg a day. 7 diastolic compensated congestive heart failure: Mostly systolic dysfunction chronic has been on Lasix fluid restriction and verapamil. 8 hypothyroidism: Continue levothyroxine 75 g daily. 9 chronic anemia: Iron deficient patient has been doing well on iron supplement oral 10. Hyperlipidemia, on Lipitor 20 mg at bedtime. 11. Progressive Hydrocephalus with ventriculomegaly concerning for normal pressure hydrocephalus. Patient has bilateral lower extremity weakness with advanced dementia with incontinence. Neurology consult placed GI prophylaxis: Patient will be on omeprazole 20 mg daily. DVT prophylaxis: Patient was on pradaxa long-term anticoagulation 12.CODE STATUS: DO NOT RESUSCITATE. 13 disposition possible discharge to [facility] tomorrow
[2019-06-23] MEDS: ATORVASTATIN 20 MG TAB PO SCH (20:48)
[2019-06-23] MEDS: traZODone HCL 50 MG TAB PO SCH (20:48)
[2019-06-23 22:12] LABS: Glucose,Whole Blood 144 mg/dL (75-99)
[2019-06-24] MEDS: LEVOTHYROXINE 75 MCG TAB PO SCH (05:38)
[2019-06-24] MEDS ORDERED: VANCOMYCIN 1,250 MG in SODIUM CHLORIDE 0.9% 250 ML IVPB SCH (06:00)
[2019-06-24 07:06] LABS: Glucose,Whole Blood 117 mg/dL (75-99)
[2019-06-24 08:33] LABS: Basophils % (A) 0 %; Eosinophils % (A) 0 %; HCT 40.9 % (34.0-46.0); HGB 12.9 gm/dL (11.4-16.0); Lymphocytes # (A) 0.9 k/uL (1.0-4.8); Lymphocytes % (A) 9 %; MCH 30.8 pg (25.0-35.0); MCHC 31.5 g/dL (31.0-37.0); MCV 97.8 fL (80.0-100.0); Mean Platelet Volume 8.7; Monocytes # (A) 0.7 k/uL (0-1.0); Monocytes % (A) 6 %; Neutrophils # (A) 9.1 k/uL (1.3-7.7); Neutrophils % (A) 84 %; Platelet Count 173 k/uL (150-450); RBC 4.18 m/uL (3.80-5.40); RDW 12.9 % (11.5-15.5); WBC 10.9 k/uL (3.8-10.6)
[2019-06-24 08:39] LABS: ALT 17 U/L (4-34); AST 26 U/L (14-36); African American GFR (CKD) >90 (>60 ml/min/1.73 sqM); Albumin 2.8 g/dL (3.5-5.0); Alkaline Phosphatase 107 U/L (38-126); Anion Gap 8 mmol/L; Blood Urea Nitrogen 18 mg/dL (7-17); Calcium 8.9 mg/dL (8.4-10.2); Carbon Dioxide 22 mmol/L (22-30); Chloride 115 mmol/L (98-107); Glucose 115 mg/dL (74-99); Non-African American GFR(CKD) 82 (>60 ml/min/1.73 sqM); Potassium 3.5 mmol/L (3.5-5.1); Sodium 145 mmol/L (137-145); Total Bilirubin 0.8 mg/dL (0.2-1.3); Total Protein 5.3 g/dL (6.3-8.2)
[2019-06-24] MEDS: MULTIVITAMINS, THERA 1 EACH TAB PO SCH (08:42)
[2019-06-24] MEDS: PANTOPRAZOLE 40 MG TABLET PO SCH (08:42)
[2019-06-24] MEDS: ASPIRIN 81 MG PO SCH (08:42)
[2019-06-24] MEDS: AMIODARONE 100 MG TAB PO SCH (08:42)
[2019-06-24] MEDS: VERAPAMIL SR 120 MG TABLET.ER PO SCH (08:42)
[2019-06-24] MEDS: DABIGATRAN 150 MG CAP PO SCH ×2 (08:43→16:23)
[2019-06-24] MEDS: LINAGLIPTIN 5 MG TABLET PO SCH (08:43)
[2019-06-24] MEDS: ESCITALOPRAM 10 MG TAB PO SCH (08:43)
[2019-06-24] MEDS: SENNOSIDES-DOCUSATE SODIUM 1 EACH TAB PO SCH (08:46)
[2019-06-24] MEDS: CEFEPIME 2 GM in SODIUM CHLORIDE 0.9% 100 ML IVPB SCH ×3 (08:46→23:51)
[2019-06-24 11:36] LABS: Glucose,Whole Blood 122 mg/dL (75-99)
[2019-06-24] MEDS: SODIUM CHLORIDE 0.9% 1,000 ML IV SCH (12:53)
--- NOTE | 2019-06-24 16:52 | P.PN ---
Subjective Progress Note Date: 06/24/19 79-year-old female who currently resides at [facility] under the service of Dr. Andrade for long-term residency for the past 3 years, after a hip fracture currently bedbound. He has underlying history of paradoxical atrial fibrillation, advanced vascular dementia hyperlipidemia, hypothyroidism, o bstructive sleep apnea, pacemaker [place], admitted to the emergency room after a call placed regarding her illness. Patient was noted to be diaphoretic, was not eating well, there is a concern regarding aspiration as patient had an episode of vomiting, she also has fever and chills. In the emergency room blood pressure was 128/68, temperature of 98 1, 92% on room air, heart rate 70s, WBC count of 20,000, INR of 1.4, BUN 23 creatinine of 0.91 urinalysis shows very cloudy urine, 3+ glucose, mild ketones, WBC clumps every 70, specific gravity of 1.036 glucose 145 influenza test is negative, urine drug screen was positive for methamphetamine negative for opiates 06/23 on evaluation today patient is a poor historian and unable to comprehend or carry on a conversation which is patient's baseline. I spoke with patient's daughter Eleanor Arnold who is patient's power of title attorney, family Friend sitting at bedside who sees patient every single day and patient's other daughter Beba Moise in detail and got an understanding that patient is minimally interactive at baseline. She is able to follow simple commands and is currently requiring supervision in eating and dressing up. Patient's friend stated that she did not see her yesterday when this event happened. She stated patient has been at her baseline until yesterday when she was more confused, weak staring blankly at the bonds. Patient is unable to provide any history but appears to be calm. White count assessed today suggest that patient has been afebrile since admission pulse is 69 blood pressure 100/57 rest. Evaluation of blood work patient's WBC has improved to 16.7 BUN is slightly elevated at 20 blood sugar ranges from 128-172 . Urine drug screen from yesterday is positive for methamphetamine which appears unlikely to be true as patient has a care home resident and does not have any stimulant medication on review of her medication. Repeat urine drug screen was done which was negative. Repeat UA is suggestive of 11 WBC small leukocyte esterase consistent with UTI. Chest x-ray was reviewed patient does have infiltrate in the basilar right lower lobe. Pro- calcitonin will be obtained. Repeat chest x-ray will be obtained today that suggestive bibasilar pulmonary infiltrate and mild pulmonary venous congestion. IV fluids decreased to 50 mL per hour. Barium swallow will be obtained as patient did not do well with the applesauce with her medications.Speech Therapy consulted. Patient's daughter request to do minimal for the patient and avoid CAT scan of the abdomen for now. She would like her mother to be comfortable and according to her daughter, CAT scan would not make her comfortable. Patient's daughter and family was explained that we are only doing imagng that is necessary for patient's care . We will hold off on CT abdomen as patient's symptoms are improving. If there is no improvement in symptoms in the next 24- [address] abdomen and pelvis with and without contrast will be ordered. Also noted on CT brain is progressive hydrocephalus which needs evaluation with neurology consultation as patient has progressive dementia, incontinence and lower extremity weakness which is also seen and normal pressure hydrocephalus. 06/24 patient on evaluation today is alert and answering questions. Leukocytosis have improved from 16 to 10. Rest of the labs are normal. No episodes of fever overnight. Urine cultures are positive for Klebsiella. Sensitivities are pending. Neurology evaluation is pending. Chest x-ray concerning for pulmonary venous congestion and bibasilar infiltrates. Pro- calcitonin elevated at 0.96 continue cefepime. Vancomycin discontinued. Patient had speech therapy evaluation and was negative for any aspiration. Recommending continuing regular thin liquid diet. Diet initiated. Review of system Could not be obtained due to advanced dementia Objective - Vital Signs Vital signs: Vital Signs Temp 98.4 F 06/24/19 11:31 Pulse 60 06/24/19 16:00 Resp 16 06/24/19 16:00 BP 144/60 06/24/19 11:31 Pulse Ox 95 06/24/19 11:31 Intake & Output 06/23/19 06/24/19 06/24/19 18:59 06:59 18:59 Intake Total 600 100 Balance 600 100 Intake: Intake, IV Titration 600 100 Amount Cefepime 2 gm In Sodium 100 Chloride 0.9% 100 ml @ 200 mls/hr IVPB Q8HR YANCY Rx#:[id number] Sodium Chloride 0.9% 1, 600 000 ml @ 50 mls/hr IV . Q20H YANCY Rx#:[id number] Other: Voiding Method Diaper Diaper Diaper # Voids 1 1 1 - Exam - Constitutional General appearance: cooperative, no acute distress appears very calm, obese - EENT Eyes: anicteric sclerae, PERRLA, normal appearance ENT: hearing grossly normal - Neck Neck: no lymphadenopathy, normal ROM, no other, no rigidity, no stridor, no thyromegaly - Respiratory Respiratory: bilateral: CTA, diminished at bases mild basilar crackles noted - Cardiovascular Rhythm: regular Heart sounds: normal: S1, S2 Abnormal Heart Sounds: no systolic murmur, no diastolic murmur, no rub - Gastrointestinal General gastrointestinal: normal bowel sounds, soft nontender - Integumentary Integumentary: no rash - Neurologic Neurologic: Difficult to assess due to patient's baseline, patient is able to move upper extremities 5/5 no movement noted in the bilateral lower extremity hyporeflexic - Musculoskeletal Musculoskeletal: gait not assessed wheelchair-bound, 0/5 bilateral lower extremi ty weakness sensation intact, patient is incontinent - Psychiatric Psychiatric: A&O x's 1, appropriate affect - Labs CBC & Chem 7: 06/24/19 07:23 06/24/19 07:23 Labs: Abnormal Lab Results - Last 24 Hours (Table) 06/23/19 06/23/19 06/23/19 Range/Units 07:54 16:43 22:11 WBC (3.8-10.6) k/uL Neutrophils # (1.3-7.7) k/uL Lymphocytes # (1.0-4.8) k/uL Chloride (98-107) mmol/L BUN (7-17) mg/dL Glucose (74-99) mg/dL POC Glucose (mg/dL) 128 H 144 H (75-99) mg/dL Total Protein (6.3-8.2) g/dL Albumin (3.5-5.0) g/dL Procalcitonin 0.96 H (0.02-0.09) ng/mL 06/24/19 06/24/19 06/24/19 Range/Units 07:01 07:23 07:23 WBC 10.9 H (3.8-10.6) k/uL Neutrophils # 9.1 H (1.3-7.7) k/uL Lymphocytes # 0.9 L (1.0-4.8) k/uL Chloride 115 H (98-107) mmol/L BUN 18 H (7-17) mg/dL Glucose 115 H (74-99) mg/dL POC Glucose (mg/dL) 117 H (75-99) mg/dL Total Protein 5.3 L (6.3-8.2) g/dL Albumin 2.8 L (3.5-5.0) g/dL Procalcitonin (0.02-0.09) ng/mL 06/24/19 Range/Units 11:34 WBC (3.8-10.6) k/uL Neutrophils # (1.3-7.7) k/uL Lymphocytes # (1.0-4.8) k/uL Chloride (98-107) mmol/L BUN (7-17) mg/dL Glucose (74-99) mg/dL POC Glucose (mg/dL) 122 H (75-99) mg/dL Total Protein (6.3-8.2) g/dL Albumin (3.5-5.0) g/dL Procalcitonin (0.02-0.09) ng/mL Microbiology - Last 24 Hours (Table) 06/22/19 13:34 Blood Culture - Preliminary Blood No Growth after 48 hours 06/22/19 13:53 Urine Culture - Final Urine,Catheterized Klebsiella pneumoniae 06/23/19 16:00 Urine Culture - Preliminary Urine,Voided Assessment and Plan Plan: 1. Sepsis with SIRS, pyelonephritis suspected with possible aspiration pneumonia, significant pyuria noted, and bacteuria noted on chemistries, on cefepime Pro-calcitonin high speech therapy evaluated the patient no aspiration was noted Barium swallow canceled Chest x-ray just showed right basilar infiltrate with possible pulmonary venous congestion. Unclear if patient has an underlying pneumonia. Chest x-rays were to be repeated if patient has cough or shortness of breath. 2. Metabolic encephalopathy, possible secondary to sepsis, improved on IV cefepime 3. Dehydration, with lactic acidosis and ketonuria, improved 3 CAD: Post PCI and stent placement asymptomatic 3. Diabetes mellitus type 2, on Januvia 50 mg daily 3 A. fib with controlled rate: Pulse rates under control currently patient is doing well on verapamil andamiodarone 100 mg daily and anticoagulation has been on pradaxa . 4 post pacemaker: Has been watch by cardiology regular basis. 5 advance vascular dementia: Patient has been on Lexapro and Zyprexa along with trazodone at nighttime. 6 hyperlipidemia: Has been on Lipitor 20 mg a day. 7 diastolic compensated congestive heart failure: Stable BNP negative 8 hypothyroidism: Continue levothyroxine 75 g daily. 9 chronic anemia: Iron deficient patient has been doing well on iron supplement oral 10. Hyperlipidemia, on Lipitor 20 mg at bedtime. 11. Progressive Hydrocephalus with ventriculomegaly concerning for normal pressure hydrocephalus. Patient has bilateral lower extremity weakness with advanced dementia with incontinence. Neurology consult placed GI prophylaxis: Patient will be on omeprazole 20 mg daily. DVT prophylaxis: Patient was on pradaxa long-term anticoagulation 12.CODE STATUS: DO NOT RESUSCITATE. 13 disposition possible discharge to [facility] tomorrow
[2019-06-24 17:11] LABS: Glucose,Whole Blood 111 mg/dL (75-99)
[2019-06-24 20:13] LABS: Glucose,Whole Blood 152 mg/dL (75-99)
[2019-06-24] MEDS: ATORVASTATIN 20 MG TAB PO SCH (20:18)
[2019-06-24] MEDS: traZODone HCL 50 MG TAB PO SCH (20:18)
[2019-06-25] MEDS: LEVOTHYROXINE 75 MCG TAB PO SCH (05:30)
[2019-06-25 07:25] LABS: Glucose,Whole Blood 116 mg/dL (75-99)
[2019-06-25 07:46] LABS: Basophils % (A) 0 %; Eosinophils % (A) 0 %; HCT 40.2 % (34.0-46.0); Hypochromasia Slight; Lymphocytes # (A) 0.8 k/uL (1.0-4.8); Lymphocytes % (A) 9 %; MCHC 32.2 g/dL (31.0-37.0); MCV 99.2 fL (80.0-100.0); Monocytes # (A) 0.6 k/uL (0-1.0); Monocytes % (A) 6 %; Neutrophils # (A) 7.6 k/uL (1.3-7.7); Neutrophils % (A) 83 %; Platelet Count 186 k/uL (150-450); RBC 4.05 m/uL (3.80-5.40); WBC 9.1 k/uL (3.8-10.6)
[2019-06-25 08:59] LABS: Poikilocytosis (M) Present
[2019-06-25] MEDS: SENNOSIDES-DOCUSATE SODIUM 1 EACH TAB PO SCH (09:00)
[2019-06-25] MEDS: ESCITALOPRAM 10 MG TAB PO SCH (09:00)
[2019-06-25] MEDS: VERAPAMIL SR 120 MG TABLET.ER PO SCH (09:00)
[2019-06-25] MEDS: LINAGLIPTIN 5 MG TABLET PO SCH (09:00)
[2019-06-25] MEDS: ASPIRIN 81 MG PO SCH (09:00)
[2019-06-25] MEDS: MULTIVITAMINS, THERA 1 EACH TAB PO SCH (09:00)
[2019-06-25] MEDS: DABIGATRAN 150 MG CAP PO SCH ×2 (09:00→17:38)
[2019-06-25] MEDS: AMIODARONE 100 MG TAB PO SCH (09:00)
[2019-06-25] MEDS: PANTOPRAZOLE 40 MG TABLET PO SCH (09:01)
[2019-06-25] MEDS: CEFEPIME 2 GM in SODIUM CHLORIDE 0.9% 100 ML IVPB SCH ×3 (09:01→23:36)
[2019-06-25 11:37] LABS: Glucose,Whole Blood 136 mg/dL (75-99)
--- NOTE | 2019-06-25 13:18 | P.PN ---
Subjective Progress Note Date: 06/25/19 79-year-old female who currently resides at [facility] under the service of Dr. Andrade for long-term residency for the past 3 years, after a hip fracture currently bedbound. He has underlying history of paradoxical atrial fibrillation, advanced vascular dementia hyperlipidemia, hypothyroidism, o bstructive sleep apnea, pacemaker [place], admitted to the emergency room after a call placed regarding her illness. Patient was noted to be diaphoretic, was not eating well, there is a concern regarding aspiration as patient had an episode of vomiting, she also has fever and chills. In the emergency room blood pressure was 128/68, temperature of 98 1, 92% on room air, heart rate 70s, WBC count of 20,000, INR of 1.4, BUN 23 creatinine of 0.91 urinalysis shows very cloudy urine, 3+ glucose, mild ketones, WBC clumps every 70, specific gravity of 1.036 glucose 145 influenza test is negative, urine drug screen was positive for methamphetamine negative for opiates 06/23 on evaluation today patient is a poor historian and unable to comprehend or carry on a conversation which is patient's baseline. I spoke with patient's daughter Eleanor Arnold who is patient's power of assistant county attorney, family Friend sitting at bedside who sees patient every single day and patient's other daughter Beba Moise in detail and got an understanding that patient is minimally interactive at baseline. She is able to follow simple commands and is currently requiring supervision in eating and dressing up. Patient's friend stated that she did not see her yesterday when this event happened. She stated patient has been at her baseline until yesterday when she was more confused, weak staring blankly at the bonds. Patient is unable to provide any history but appears to be calm. White count assessed today suggest that patient has been afebrile since admission pulse is 69 blood pressure 100/57 rest. Evaluation of blood work patient's WBC has improved to 16.7 BUN is slightly elevated at 20 blood sugar ranges from 128-172 . Urine drug screen from yesterday is positive for methamphetamine which appears unlikely to be true as patient has a residential resident and does not have any stimulant medication on review of her medication. Repeat urine drug screen was done which was negative. Repeat UA is suggestive of 11 WBC small leukocyte esterase consistent with UTI. Chest x-ray was reviewed patient does have infiltrate in the basilar right lower lobe. Pro- calcitonin will be obtained. Repeat chest x-ray will be obtained today that suggestive bibasilar pulmonary infiltrate and mild pulmonary venous congestion. IV fluids decreased to 50 mL per hour. Barium swallow will be obtained as patient did not do well with the applesauce with her medications.Speech Therapy consulted. Patient's daughter request to do minimal for the patient and avoid CAT scan of the abdomen for now. She would like her mother to be comfortable and according to her daughter, CAT scan would not make her comfortable. Patient's daughter and family was explained that we are only doing imagng that is necessary for patient's care . We will hold off on CT abdomen as patient's symptoms are improving. If there is no improvement in symptoms in the next 24- [address] abdomen and pelvis with and without contrast will be ordered. Also noted on CT brain is progressive hydrocephalus which needs evaluation with neurology consultation as patient has progressive dementia, incontinence and lower extremity weakness which is also seen and normal pressure hydrocephalus. 06/24 patient on evaluation today is alert and answering questions. Leukocytosis have improved from 16 to 10. Rest of the labs are normal. No episodes of fever overnight. Urine cultures are positive for Klebsiella. Sensitivities are pending. Neurology evaluation is pending. Chest x-ray concerning for pulmonary venous congestion and bibasilar infiltrates. Pro- calcitonin elevated at 0.96 continue cefepime. Vancomycin discontinued. Patient had speech therapy evaluation and was negative for any aspiration. Recommending continuing regular thin liquid diet. Diet initiated. 06/25/2019. Patient evaluated at bedside doing well resting comfortably. Leukocytosis has improved. Patient denies any chest pain, shortness of breath, abdominal pain. Patient is a poor historian. Patient's relative at bedside who is comfortable with patient's care. Neurology has not assessed the patient for hydro-cephalus . Since the hydrocephalus is chronic, patient may need outpatient workup including MRIs depending upon aggressive family members want to be Being a holiday it is possible patient may not be able to be transferred back to [facility] today, family request liquid medication patient will need 3 more days of Levaquin Review of system Could not be obtained due to advanced dementia Objective - Vital Signs Vital signs: Vital Signs Temp 97.3 F L 06/25/19 04:50 Pulse 93 06/25/19 04:50 Resp 19 06/25/19 04:50 BP 186/84 06/25/19 04:50 Pulse Ox 97 06/25/19 04:50 Intake & Output 06/24/19 06/25/19 06/25/19 18:59 06:59 18:59 Other: Voiding Method Diaper Diaper Diaper Incontinent # Voids 1 1 - Exam - Constitutional General appearance: cooperative, no acute distress appears very calm, obese - EENT Eyes: anicteric sclerae, PERRLA, normal appearance ENT: hearing grossly normal - Neck Neck: no lymphadenopathy, normal ROM, no other, no rigidity, no stridor, no thyromegaly - Respiratory Respiratory: bilateral: CTA, diminished at bases mild basilar crackles noted - Cardiovascular Rhythm: regular Heart sounds: normal: S1, S2 Abnormal Heart Sounds: no systolic murmur, no diastolic murmur, no rub - Gastrointestinal General gastrointestinal: normal bowel sounds, soft nontender - Integumentary Integumentary: no rash - Neurologic Neurologic: Difficult to assess due to patient's baseline, patient is able to move upper extremities 5/5 no movement noted in the bilateral lower extremity hyporeflexic - Musculoskeletal Musculoskeletal: gait not assessed wheelchair-bound, 0/5 bilateral lower extremity weakness sensation intact, patient is incontinent - Psychiatric Psychiatric: A&O x's 1, appropriate affect - Labs CBC & Chem 7: 06/25/19 07:19 06/24/19 07:23 Labs: Abnormal Lab Results - Last 24 Hours (Table) 06/24/19 06/24/19 06/24/19 Range/Units 11:34 17:05 20:09 Lymphocytes # (1.0-4.8) k/uL POC Glucose (mg/dL) 122 H 111 H 152 H (75-99) mg/dL 06/25/19 06/25/19 Range/Units 07:14 07:19 Lymphocytes # 0.8 L (1.0-4.8) k/uL POC Glucose (mg/dL) 116 H (75-99) mg/dL Microbiology - Last 24 Hours (Table) 06/23/19 16:00 Urine Culture - Final Urine,Voided 06/22/19 13:34 Blood Culture - Preliminary Blood No Growth after 48 hours 06/22/19 13:53 Urine Culture - Final Urine,Catheterized Klebsiella pneumoniae Assessment and Plan Plan: 1. Sepsis secondary to pyelonephritis with possible aspiration pneumonia, significant pyuria noted, and bacteuria noted on chemistries, on cefepime Pro-calcitonin high speech therapy evaluated the patient no aspiration was noted Barium swallow canceled Chest x-ray just showed right basilar infiltrate with possible pulmonary venous congestion. Unclear if patient has an underlying pneumonia. Chest x-rays were to be repeated if patient has cough or shortness of breath. 2. Metabolic encephalopathy, possible secondary to sepsis, improved on IV cefepime 3. Dehydration, with lactic acidosis and ketonuria, improved 3 CAD: Post PCI and stent placement asymptomatic 3. Diabetes mellitus type 2, on Januvia 50 mg daily 3 A. fib with controlled rate: Pulse rates under control currently patient is doing well on verapamil andamiodarone 100 mg daily and anticoagulation has been on pradaxa . 4 post pacemaker: Has been watch by cardiology regular basis. 5 advance vascular dementia: Patient has been on Lexapro and Zyprexa along with trazodone at nighttime. 6 hyperlipidemia: Has been on Lipitor 20 mg a day. 7 diastolic compensated congestive heart failure: Stable BNP negative 8 hypothyroidism: Continue levothyroxine 75 g daily. 9 chronic anemia: Iron deficient patient has been doing well on iron supplement oral 10. Hyperlipidemia, on Lipitor 20 mg at bedtime. 11. Progressive Hydrocephalus with ventriculomegaly concerning for normal pressure hydrocephalus. Patient has bilateral lower extremity weakness with advanced dementia with incontinence. Neurology consult placed GI prophylaxis: Patient will be on omeprazole 20 mg daily. DVT prophylaxis: Patient was on pradaxa long-term anticoagulation 12.CODE STATUS: DO NOT RESUSCITATE. 13 disposition possible discharge to [facility] tomorrow
[2019-06-25 17:07] LABS: Glucose,Whole Blood 106 mg/dL (75-99)
[2019-06-25 20:13] LABS: Glucose,Whole Blood 111 mg/dL (75-99)
[2019-06-25] MEDS: ATORVASTATIN 20 MG TAB PO SCH (20:36)
[2019-06-25] MEDS: traZODone HCL 50 MG TAB PO SCH (20:36)
[2019-06-25 21:15] VITALS: RESP 16
[2019-06-26 04:29] VITALS: BP 124/70; PULSE 92; TEMP 98
[2019-06-26] MEDS: LEVOTHYROXINE 75 MCG TAB PO SCH (05:33)
[2019-06-26 07:02] LABS: Glucose,Whole Blood 102 mg/dL (75-99)
--- NOTE | 2019-06-26 08:49 | P.DS ---
Providers Date of admission: 06/24/19 08:51 Expected date of discharge: 06/26/19 Attending physician: Heidi Cardozo Consults: 06/23/19 17:14 Consult Physician Routine Consulting Provider: Alonso Pickens Consult Reason/Comments: progressive hydrocephalus Do you want consulting provider notified?: Yes Primary care physician: Jamison Andrade [facility] Course: 79-year-old female who currently resides at [facility] under the service of Dr. Andrade for long-term residency for the past 3 years, after a hip fracture currently bedbound. He has underlying history of paradoxical atrial fibrillation, advanced vascular dementia hyperlipidemia, hypothyroidism, obstructive sleep apnea, pacemaker [place], admitted to the emergency room after a call placed regarding her illness. Patient was noted to be diaphoretic, was not eating well, there is a concern regarding aspiration as patient had an episode of vomiting, she also has fever and chills. In the emergency room blood pressure was 128/68, temperature of 98 1, 92% on room air, heart rate 70s, WBC count of 20,000, INR of 1.4, BUN 23 creatinine of 0.91 urinalysis shows very cloudy urine, 3+ glucose, mild ketones, WBC clumps every 70, specific gravity of 1.036 glucose 145 influenza test is negative, urine drug screen was positive for methamphetamine negative for opiates 06/23 on evaluation today patient is a poor historian and unable to comprehend or carry on a conversation which is patient's baseline. I spoke with patient's daughter Eleanor Arnold who is patient's power of civil litigation attorney, family Friend sitting at bedside who sees patient every single day and patient's other daughter Beba Moise in detail and got an understanding that patient is minimally interactive at baseline. She is able to follow simple commands and is currently requiring supervision in eating and dressing up. Patient's friend stated that she did not see her yesterday when this event happened. She stated patient has been at her baseline until yesterday when she was more confused, weak staring blankly at the bonds. Patient is unable to provide any history but appears to be calm. White count assessed today suggest that patient has been afebrile since admission pulse is 69 blood pressure 100/57 rest. Evaluation of blood work patient's WBC has improved to 16.7 BUN is slightly elevated at 20 blood sugar ranges from 128-172 . Urine drug screen from yesterday is positive for methamphetamine which appears unlikely to be true as patient has a [facility]dc resident and does not have any stimulant medication on review of her medication. Repeat urine drug screen was done which was negative. Repeat UA is suggestive of 11 WBC small leukocyte esterase consistent with UTI. Chest x-ray was reviewed patient does have infiltrate in the basilar right lower lobe. Pro- calcitonin will be obtained. Repeat chest x-ray will be obtained today that suggestive bibasilar pulmonary infiltrate and mild pulmonary venous congestion. IV fluids decreased to 50 mL per hour. Barium swallow will be obtained as patient did not do well with the applesauce with her medications.Speech Therapy consulted. Patient's daughter request to do minimal for the patient and avoid CAT scan of the abdomen for now. She would like her mother to be comfortable and according to her daughter, CAT scan would not make her comfortable. Patient's daughter and family was explained that we are only doing imagng that is necessary for patient's care . We will hold off on CT abdomen as patient's symptoms are improving. If there is no improvement in symptoms in the next 24- [address] abdomen and pelvis with and without contrast will be ordered. Also noted on CT brain is progressive hydrocephalus which needs evaluation with neuro logy consultation as patient has progressive dementia, incontinence and lower extremity weakness which is also seen and normal pressure hydrocephalus. 06/24 patient on evaluation today is alert and answering questions. Leukocytosis have improved from 16 to 10. Rest of the labs are normal. No episodes of fever overnight. Urine cultures are positive for Klebsiella. Sensitivities are pending. Neurology evaluation is pending. Chest x-ray concerning for pulmonary venous congestion and bibasilar infiltrates. Pro- calcitonin elevated at 0.96 continue cefepime. Vancomycin discontinued. Jazmyn murray had speech therapy evaluation and was negative for any aspiration. Recommending continuing regular thin liquid diet. Diet initiated. 06/25/2019. Patient evaluated at bedside doing well resting comfortably. Leukocytosis has improved. Patient denies any chest pain, shortness of breath, abdominal pain. Patient is a poor historian. Patient's relative at bedside who is comfortable with patient's care. Neurology has not assessed the patient for hydro-cephalus . Since the hydrocephalus is chronic, patient may need outpatient workup including MRIs depending upon aggressive family members want to be Being a holiday it is possible patient may not be able to be transferred back to [facility] today, family request liquid medication patient will need 3 more days of Levaquin /2: Patient has been afebrile, heart rate 92, blood pressure 124/70, pulse ox 96% on room air. Case was discussed with Dr. Herrera, neurology, and at this time due to patient's significant dementia, NPH is rather doubtful and patient would require full outpatient workup. Patient's sister, Darin Stephens, is at the bedside and updated. There is still concern for aspiration although patient did pass barium swallow without aspiration. The sister states that sometimes she does not have her teeth and at the [facility] when she is eating. We will put and specific instructions the patient needs to have dentures in place and be supervised for all meals. Patient will be discharged back to [facility] today in stable condition. Discharge diagnoses: 1. Sepsis secondary to Klebsiella pyelonephritis with possible aspiration pneumonia. Speech therapy evaluated the patient no aspiration noted on Barium swallow. 2. Metabolic encephalopathy, possible secondary to sepsis, improved 3. Dehydration, with lactic acidosis and ketonuria, improved 4. CAD: Post PCI and stent placement asymptomatic 5. Diabetes mellitus type 2 6. Paroxysmal atrial fibrillation 7. post pacemaker 8. Advanced vascular dementia 9. Hyperlipidemia 10. Chronic diastolic heart failure 11. Hypothyroidism 12. Chronic anemia of chronic disease 13. Possible Progressive Hydrocephalus with ventriculomegaly concerning for normal pressure hydrocephalus. Discharge plan: Return to [facility] Impression and plan of care have been directed as dictated by the signing physician. Taylor Dexter nurse practitioner acting as scribe for signing physician. Patient Condition at Discharge: Good Plan - Discharge Summary New Discharge Prescriptions: New Levofloxacin Oral Soln [Levaquin Oral Soln] 500 mg PO DAILY #60 ml Continue Na Phos,M-B/Na Phos,Di-Ba [Fleet Adult] 133 ml RECTAL DAILY PRN PRN Reason: Constipation Bisacodyl [Dulcolax] 10 mg RECTAL DAILY PRN PRN Reason: Constipation Acetaminophen Tab [Tylenol] 1,000 mg PO Q4H PRN PRN Reason: Pain Dabigatran [Pradaxa] 150 mg PO BID@0800,1700 traZODone HCL 150 mg PO HS@2100 Verapamil HCl [Verapamil ER] 120 mg PO DAILY@0800 Potassium Chloride ER [K-Dur 20] 20 meq PO MOWEFR@0800 Amiodarone HCl [Pacerone] 100 mg PO DAILY@0800 Omeprazole 20 mg PO DAILY@0600 Multivitamins, Thera [Multivitamin (formulary)] 1 tab PO DAILY@0800 Levothyroxine Sodium [Synthroid] 75 mcg PO DAILY@0800 Furosemide [Lasix] 40 mg PO MOWEFR@0800 Ferrous Sulfate [Iron (65 MG Elemental)] 325 mg PO BID@0800,1700 Escitalopram Oxalate [Lexapro] 10 mg PO DAILY@0800 Atorvastatin [Lipitor] 20 mg PO HS@2100 Aspirin 81 mg PO DAILY@0800 Sennosides/Docusate Sodium [Daysi Colace] 1 tab PO DAILY@0800 Magnesium Hydroxide [Milk of Magnesia Concentrate] 7,200 mg PO DAILY PRN PRN Reason: Constipation Mag Hydrox/Al Hydrox/Simeth [Maalox] 15 ml PO Q6H PRN PRN Reason: Gi Upset Caldescene Baby Powder 1 applic TOPICAL TID sitaGLIPtin [Januvia] 50 mg PO DAILY@0800 Loperamide HCl [Loperamide] 2 mg PO DAILY PRN PRN Reason: Diarrhea guaiFENesin [guaiFENesin Oral Solution] 200 mg PO Q4H PRN PRN Reason: Cough Cholecalciferol (Vitamin D3) [Vitamin D3] 2,000 unit PO DAILY@0800 Discharge Medication List Acetaminophen Tab [Tylenol] 1,000 mg PO Q4H PRN 10/12/16 [History] Amiodarone HCl [Pacerone] 100 mg PO DAILY@0800 10/12/16 [History] Aspirin 81 mg PO DAILY@0800 10/12/16 [History] Atorvastatin [Lipitor] 20 mg PO HS@209910/12/16 [History] Bisacodyl [Dulcolax] 10 mg RECTAL DAILY PRN 10/12/16 [History] Dabigatran [Pradaxa] 150 mg PO BID@0800,1700 10/12/16 [History] Escitalopram Oxalate [Lexapro] 10 mg PO DAILY@0800 10/12/16 [History] Ferrous Sulfate [Iron (65 MG Elemental)] 325 mg PO BID@0800,1700 10/12/16 [History] Furosemide [Lasix] 40 mg PO MOWEFR@0800 10/12/16 [History] Levothyroxine Sodium [Synthroid] 75 mcg PO DAILY@0810/12/16 [History] Multivitamins, Thera [Multivitamin (formulary)] 1 tab PO DAILY@0810/12/16 [History] Na Phos,M-B/Na Phos,Di-Ba [Fleet Adult] 133 ml RECTAL DAILY PRN 10/12/16 [History] Omeprazole 20 mg PO DAILY@0610/12/16 [History] Potassium Chloride ER [K-Dur 20] 20 meq PO MOWEFR@79910/12/16 [History] Verapamil HCl [Verapamil ER] 120 mg PO DAILY@0810/12/16 [History] traZODone HCL 150 mg PO HS@2100 10/12/16 [History] Caldescene Baby Powder 1 applic TOPICAL TID 06/22/19 [History] Cholecalciferol (Vitamin D3) [Vitamin D3] 2,000 unit PO DAILY@0806/22/19 [History] Loperamide HCl [Loperamide] 2 mg PO DAILY PRN 06/22/19 [History] Mag Hydrox/Al Hydrox/Simeth [Maalox] 15 ml PO Q6H PRN 06/22/19 [History] Magnesium Hydroxide [Milk of Magnesia Concentrate] 7,200 mg PO DAILY PRN 06/22/19 [History] Sennosides/Docusate Sodium [Daysi Colace] 1 tab PO DAILY@0806/22/19 [History] guaiFENesin [guaiFENesin Oral Solution] 200 mg PO Q4H PRN 06/22/19 [History] sitaGLIPtin [Januvia] 50 mg PO DAILY@0806/22/19 [History] Levofloxacin Oral Soln [Levaquin Oral Soln] 500 mg PO DAILY #60 ml 06/25/19 [Rx] Follow up Appointment(s)/Referral(s): Jamison Andrade MD [Primary Care Provider] - 1 Week () Activity/Diet/Wound Care/Special Instructions: Feed all meals with supervision. Make sure dentures are in place. Discharge Disposition: TRANSFER TO SNF/[facility]
[2019-06-26] MEDS: CEFEPIME 2 GM in SODIUM CHLORIDE 0.9% 100 ML IVPB SCH (09:24)
[2019-06-26] MEDS: ESCITALOPRAM 10 MG TAB PO SCH (09:25)
[2019-06-26] MEDS: AMIODARONE 100 MG TAB PO SCH (09:25)
[2019-06-26] MEDS: DABIGATRAN 150 MG CAP PO SCH (09:25)
[2019-06-26] MEDS: LINAGLIPTIN 5 MG TABLET PO SCH (09:25)
[2019-06-26] MEDS: VERAPAMIL SR 120 MG TABLET.ER PO SCH (09:25)
[2019-06-26] MEDS: ASPIRIN 81 MG PO SCH (09:28)
[2019-06-26] MEDS: SENNOSIDES-DOCUSATE SODIUM 1 EACH TAB PO SCH (09:28)
[2019-06-26] MEDS: PANTOPRAZOLE 40 MG TABLET PO SCH (09:29)
[2019-06-26] MEDS: MULTIVITAMINS, THERA 1 EACH TAB PO SCH (09:29)
[2019-06-26 11:31] LABS: Glucose,Whole Blood 107 mg/dL (75-99)
--- NOTE | 2019-07-02 08:27 | CDI ---
Documentation Clarification Form Date: 07/02/2019 From: Eleanor Carroll Phone: If you have a question about this query, please contact Alondra Moreira, [place] at [phone] between 8am and 5pm. Admit Date: 06/22/19 Discharge Date:07/02/2019 Patient Name: Nancy Wright Visit Number: [id number] ATTENTION: The Clinical Documentation Specialists (CDI) and [facility] Coding Staff appreciate your assistance in clarifying documentation. Please respond to the clarification below the line at the bottom and electronically sign. The CDI & [facility] Coding staff will review the response and follow-up if needed. Please note: Queries are made part of the Legal Health Record. If you have any questions, please contact the author of this message via ITS. Dear Dr. Tellez Pyelonephritis was documented in the H&P, discharge summary and progress notes. History/Risk Factors: Diabetes, dementia, depression Clinical Indicators: Altered mental status, weakness, pyuria Vital Signs: T. 98.1, P. 70, R. 18, BP 128/68 WBC: 20.1 Urinalysis: Bacteria many, WBC 70, leukocyte esterase large, nitrite negative, RBC 3, Urine Culture: Klebsiella Treatment: Antibiotics: IV antibiotics Please further clarify the pyelonephritis acuity Acute Chronic Other, please specify Unable to determine acute MTDD
== END 2019-06-26 12:50 | DRG 871 ==
LOC: EC 13:12 → 4SSUR 15:36 → 5NMEDONC 18:32 → OBSVTOIN 06-24 08:51
PROVIDERS: ADMIT Family Medicine; ATTEND Family Medicine
DX: A41.59 Other Gram-negative sepsis (principal); G93.41 Metabolic encephalopathy; J69.0 Pneumonitis due to inhalation of food and vomit; G91.9 Hydrocephalus, unspecified; I50.32 Chronic diastolic (congestive) heart failure; N12 Tubulo-interstitial nephritis, not specified as acute or chronic; N10 Acute pyelonephritis; R65.20 Severe sepsis without septic shock; D63.8 Anemia in other chronic diseases classified elsewhere; E11.51 Type 2 diabetes mellitus with diabetic peripheral angiopathy without gangrene; F01.50 Vascular dementia, unspecified severity, without behavioral disturbance, psychotic disturbance, mood disturbance, and anxiety; I11.0 Hypertensive heart disease with heart failure; D50.9 Iron deficiency anemia, unspecified; E03.9 Hypothyroidism, unspecified; E78.5 Hyperlipidemia, unspecified; E86.0 Dehydration; F32.9 Major depressive disorder, single episode, unspecified; I25.10 Atherosclerotic heart disease of native coronary artery without angina pectoris; I48.0 Paroxysmal atrial fibrillation; R09.02 Hypoxemia; G47.33 Obstructive sleep apnea (adult) (pediatric); K21.9 Gastro-esophageal reflux disease without esophagitis; R32 Unspecified urinary incontinence; E66.9 Obesity, unspecified; Z68.27 Body mass index [BMI] 27.0-27.9, adult; Z66 Do not resuscitate; Z74.01 Bed confinement status; Z99.3 Dependence on wheelchair; Z79.01 Long term (current) use of anticoagulants; Z79.82 Long term (current) use of aspirin; Z79.84 Long term (current) use of oral hypoglycemic drugs; Z79.890 Hormone replacement therapy; Z79.899 Other long term (current) drug therapy; Z91.040 Latex allergy status; Z88.0 Allergy status to penicillin; Z91.013 Allergy to seafood; Z96.651 Presence of right artificial knee joint; Z95.5 Presence of coronary angioplasty implant and graft; Z95.0 Presence of cardiac pacemaker; Z87.891 Personal history of nicotine dependence; Z86.73 Personal history of transient ischemic attack (TIA), and cerebral infarction without residual deficits; Z90.49 Acquired absence of other specified parts of digestive tract; Z82.49 Family history of ischemic heart disease and other diseases of the circulatory system; Z83.3 Family history of diabetes mellitus
CPT/HCPCS: 36415; 70450; 71045; 71046; 80053; 80306; 81001; 82803; 83605; 83880; 84145; 84443; 85025; 85610; 85730; 87040; 87077; 87086; 87186; 87502; 93005; 96361; 96365; 96367; 99285